=== PATIENT | male | born 1995 | race Two or more races ===

== ENCOUNTER 2024-09-15 17:08 | Inpatient (IN) | payer MEDICAID, OTHER ==
[~2024-09-15] VITALS: Ht 182.9 cm; Wt 88.4 kg
--- NOTE | 2024-09-15 18:07 | ED.PDOC ---
History of Present Illness(SKN HPI Comments 28 y.o male presents to the ED for an evaluation of a foot wound. Patient reports wearing new shoes one week ago, developed a callous on the right bottom foot which bursted and drained pus substance. Patient reports for the past 1-2 days he developed fevers, chills, nausea, vomiting and generalized weakness as well. He presents to the ED with BG of 402 and repeat at 441. Patient denies history of DM only family hx and is not on any medications. No allergies reported either. He admits to tobacco and marijuana use. Chief Complaint: Wound Check Time Seen by MD: 17:53 History of Present Illness: Nurses Notes, Medications, Allergies Allergies: Coded Allergies: NO KNOWN ALLERGIES (Unverified , 09/15/24) Information Source: Patient Mode of Arrival: Ambulatory Severity: Moderate Timing: Weeks (1) Duration: Since onset Location: Foot Object: None Condition of Object: None Wound Type: Other Tetanus: Unknown History of: None Associated Signs and Symptoms: Fever, Chills, N/V, Pus, Weakness, Weakness Past Medical History PAST MEDICAL HISTORY: Denies Surgical History: Denies all surgeries Family History Family History: Family hx of DM Social History Smoker: Cigarettes Alcohol: Occasionally Drugs: Denies Drug Use Constitutional: reports: chills, fever, weakness; denies: diaphoresis, fatigue, malaise, sweats, others EENTM: denies: blurred vision, double vision, ear bleeding, ear discharge, ear drainage, ear pain, ear ringing, eye pain, eye redness, hearing loss, mouth pain, mouth swelling, nasal discharge, nose bleeding, nose congestion, nose pain, photophobia, tearing, throat pain, throat swelling, voice changes, others Respiratory: denies: cough, hemoptysis, orthopnea, SOB at rest, shortness of breath, SOB with excertion, stridor, wheezing, others Cardiovascular: denies: chest pain, dizzy spells, diaphoresis, Dyspnea on exertion, edema, irregular heart beat, left arm pain, lightheadedness, palpitations, PND, syncope, others Gastrointestinal: reports: nausea, vomiting; denies: abdomen distended, abdominal pain, blood streaked bowels, constipated, diarrhea, dysphagia, difficulty swallowing, hematemesis, melena, poor appetite, poor fluid intake, rectal bleeding, rectal pain, others Genitourinary: denies: burning, dysuria, flank pain, frequency, hematuria, incontinence, penile discharge, penile sore, pain, testicle pain, testicle swel ling, urgency, others Neurological: denies: dizziness, fainting, headache, left sided numbness, left sided weakness, numbness, paresthesia, pre-existing deficit, right sided numbness, right sided weakness, seizure, speech problems, tingling, tremors, weakness, others Musculoskeletal: denies: back pain, gout, joint pain, joint swelling, muscle pain, muscle stiffness, neck pain, others Integumetry: reports: wounds (right foot callous with pus discharge ); denies: bruises, change in color, change in hair/nails, dryness, laceration, lesions, lumps, rash, others Allergic/Immunocompromised: denies: Difficulty Healing, Frequent Infections, Hives, Itching, others Hematologic/Lymphatic: denies: anemia, blood clots, easy bleeding, easy bruising, swollen glands, others Endocrine: denies: excessive hunger, excessive sweating, excessive thirst, excessive urination, flushing, intolerance to cold, intolerance to heat, unexplained weight gain, unexplained weight loss, others Psychiatric: denies: anxiety, bipolar disorder, depression, hopeless, panic disorder, schizophrenia, sleepless, suicidal, others All Other Systems: Reviewed and Negative Physical Exam General Appearance: Mild Distress HEENT: Normal ENT Inspection, Pharynx Normal, TMs Normal Neck: Full Range of Motion, Non-Tender, Normal, Normal Inspection Respiratory: Chest Non-Tender, Lungs Clear, No Accessory Muscle Use, No Respiratory Distress, Normal Breath Sounds Cardiovascular: No Edema, No JVD, No Murmur, No Gallop, Normal Peripheral Pulses, Regular Rate/Rhythm Breast Exam: Deferred Gastrointestinal: No Organomegaly, Non Tender, No Pulsatile Mass, Normal Bowel Sounds, Soft Genitalia: Deferred Pelvic: Deferred Rectal: Deferred Extremities: No calf tenderness, Normal capillary refill, Normal inspection, Normal range of motion, Non-tender, No pedal edema Musculoskeletal : Apperance: Normal Neurologic: Alert, foundry technician II-XII nml as Tested, No Motor Deficits, Normal Affect, Normal Mood, No Sensory Deficits Cerebellar Function: Normal Reflexes: Normal Skin: Dry, Normal Color, Warm, Other (Right foot was swelling and redness with signs of cellulitis) Lymphatic: No Adenopathy Was a procedure done? Was a procedure done?: No Differential Diagnosis (INTG) Differential Diagnosis: Contusion, Fracture Differential Diagnosis: Cellulitis Abscess: Abscess Differential Diagnosis: Puncture Wound X-Ray, Labs, Meds, VS Vital Signs Date Time Temp Pulse Resp B/P (MAP) Pulse Ox O2 Delivery O2 Flow Rate FiO2 09/15/24 18:14 124 18 96 Room Air 09/15/24 18:14 98.3 124 18 154/88 (110) 96 98.3 09/15/24 18:06 98.5 123 16 123/83 (96) 99 Lab Test 09/15/24 18:41 09/15/24 17:46 09/15/24 17:45 Range/Units White Blood Count 13.0 H 4.4-10.8 10^3/uL Red Blood Count 4.67 4.5-5.90 10^6/uL Hemoglobin 13.6 13.5-17.5 g/dL Hematocrit 39.0 L 41.0-53.0 % Mean Corpuscular Volume 83.5 80.0-100.0 fL Mean Corpuscular Hemoglobin 29.1 28.0-32.0 pg Mean Corpuscular Hemoglobin Concent 34.8 32.0-36.0 g/dL Red Cell Distribution Width 12.1 11.8-14.3 % Platelet Count 190 140-450 10^3/uL Mean Platelet Volume 9.3 6.9-10.8 fL Neutrophils (%) (Auto) 81.7 H 37.0-80.0 % Lymphocytes (%) (Auto) 10.4 10.0-50.0 % Monocytes (%) (Auto) 7.5 0.0-12.0 % Eosinophils (%) (Auto) 0.3 0.0-7.0 % Basophils (%) (Auto) 0.1 0.0-2.0 % Neutrophils # (Auto) 10.6 H 1.6-8.6 10 ^3/uL Lymphocytes # (Auto) 1.3 0.4-5.4 10 ^3/uL Monocytes # (Auto) 1.0 0-1.3 10 ^3/uL Eosinophils # (Auto) 0 0-0.8 10 ^3/uL Basophils # (Auto) 0 0-0.2 10 ^3/uL Nucleated Red Blood Cells 0.0 % Sodium Level Pending Potassium Level Pending Chloride Level Pending Carbon Dioxide Level Pending Anion Gap Pending Blood Urea Nitrogen Pending Creatinine Pending Glomerular Filtration Rate Calc Pending BUN/Creatinine Ratio Pending Serum Glucose Pending Calcium Level Pending Beta-Hydroxybutyric Acid Pending POC Glucose 441 *H 402 *H 70-106 mg/dl Current Medications Medications (Trade) Dose Ordered Sig/Nathan Route Start Time Stop Time Status Last Admin Sodium Chloride 1,000 ml @ 1,000 mls/hr Q1H ONCE IV 09/15/24 18:00 09/15/24 18:59 DC 09/15/24 18:26 Insulin Human Regular (InsuLIN R) 5 units ONCE ONCE IV 09/15/24 18:45 09/15/24 18:47 DC 09/15/24 19:05 CT scan of the left foot shows: Findings/Impression: Limited evaluation given noncontrast technique. There is no evidence of an acute fracture, dislocation, osseous erosions, blastic, or lytic lesions. No radiopaque foreign bodies. Mild soft tissue edema. No focal fluid collections or subcutaneous emphysema. The patient was given a 1 L bolus of normal saline The patient was being given insulin 5 units IV push The patient was being admitted to the hospitalist The patient was started on clindamycin IV piggyback Images Reviewed?: Images reviewed and evaluated by me Time of 1ST Reevaluation: 18:02 Reevaluation 1ST: Unchanged Patient Education/Counseling: Diagnosis, Treatment, Prognosis Family Education/Counseling: No Family Present Departure 1 Departure Time of Disposition: 19:49 Impression: Primary Impression: New onset type 2 diabetes mellitus Additional Impressions: Cellulitis of right foot Hyperglycemia Disposition: 09 ADMITTED INPATIENT Admit to: Med Surg Condition: Fair Critical Care Note Critical Care Time?: No Stability Stability form required: Yes Unstable for transfer: ED Physician Assesment (Clinical assesment) I personally scribed for WALTER NANCE MD ([email or web address]) on 09/15/24 at 18:07. Electronically submitted by Crystal Carpenter ([facility]). WALTER NANCE MD Sep 15, 2024 18:07
[2024-09-15] MEDS: SODIUM CHLORIDE 0.9% 1,000 ML IV ONE ×2 (18:26→21:45)
--- NOTE | 2024-09-15 18:36 | DVH ---
EXAM: CT CT R FOOT WO CONTRAST INDICATION: WOUND EXAM DATE: 09/15/2024 06:00 PM COMPARISON: None TECHNIQUE: Multiple axial CT images of the right foot were obtained using bone algorithm. Axial and c oronal reformatting was done. Bone and soft tissue windows were reviewed. Radiation Dose Information: CT Dose: CTDI volume is 7.75 mGy. Dose-length product is 204.08 mGy*cm Findings/Impression: Limited evaluation given noncontrast technique. There is no evidence of an acute fracture, dislocation, osseous erosions, blastic, or lytic lesions. No radiopaque foreign bodies. Mild soft tissue edema. No focal fluid collections or subcutaneous emphysema.
[2024-09-15] MEDS: InsuLIN REG 1unit/0.01ml Soln (100units/ml) IV ONE ×2 (19:05→22:17)
[2024-09-15 19:18] LABS: Basophils # (auto) 0 10 ^3/uL (0-0.2); Basophils % (auto) 0.1 % (0.0-2.0); Eosinophils # (auto) 0 10 ^3/uL (0-0.8); Eosinophils % (auto) 0.3 % (0.0-7.0); Hemoglobin 13.6 g/dL (13.5-17.5); Lymphocytes # (auto) 1.3 10 ^3/uL (0.4-5.4); Lymphocytes % (auto) 10.4 % (10.0-50.0); Mean Corpuscular Hemoglobin 29.1 pg (28.0-32.0); Mean Corpuscular Hgb Conc. 34.8 g/dL (32.0-36.0); Mean Corpuscular Volume 83.5 fL (80.0-100.0); Monocytes % (auto) 7.5 % (0.0-12.0); Neutrophils # (auto) 10.6 10 ^3/uL (1.6-8.6); Neutrophils % (auto) 81.7 % (37.0-80.0); Platelet Count (auto) 190 10^3/uL (140-450); Red Blood Cells 4.67 10^6/uL (4.5-5.90); Red Cell Distribution Width 12.1 % (11.8-14.3)
[2024-09-15 19:27] LABS: Potassium 4.4 mmol/L (3.5-5.1)
[2024-09-15 19:28] LABS: Anion Gap 9 (5-15); Calcium 9.1 mg/dL (8.7-10.4); Carbon Dioxide 25 mmol/L (20-31)
[2024-09-15 19:33] LABS: BUN/Creatinine Ratio 13.7 (10.0-20.0); Blood Urea Nitrogen 14 mg/dL (9-23)
[2024-09-15 19:47] LABS: Chloride 97 mmol/L (98-107); Sodium 131 mmol/L (136-145)
[2024-09-15 19:48] LABS: Glucose 431 mg/dL (74-106)
[2024-09-15 20:15] VITALS: PULSE 115; RESP 20; O2SAT 97
--- NOTE | 2024-09-15 21:28 | DVHHPRES ---
History of Present Illness Resident Creating Document: ANN DALEY RESDIENT History of Present Illness This is a 28-year-old male with fecal past medical history came to the hospital due to foot wound. Per patient, he changes shows 1 week back which was not properly feet (use for 1 day), 3 days later his noticed a blister at the heel of right foot, which progressively enlarged, and burst. The patient did not noticed the ulcer at the beginning, did not feel any pain. Today, right leg is pollen/rate at the level of ankle with mild tenderness. At ER, glucose was 441. PMHx: Not significant PSHx: not Significant Family history: Significant for the diabetes in mother and father Social history: Smokes cigarettes, denies any other drug use Home medication: Use no medicine Allergic history: No known allergies Review of Systems Review of Systems General: patient denies fever, fatigue, weaknes, sweating, any recent changes in appetite and weight HEENT: No headaches, visiual changes, hearing loss, tinnitus, nasal congestion and discharge, and sore throat. Cardiovascular: Denies chest pain, palpitations, dyspnea on exertion, orthopnea, or claudication. Respiratory: No cough, and wheezing. Gastrointestinal: Denies nausea, vomiting, dysphagia, odynophagia, heartburn, abdominal pain, flatulence, bloating, diarrhea, constipation, change in stool, or blood in stool. Genitourinary: No dysuria, hematuria, discharge, frequency, urgency, nocturia, incontinence, and urinary retention. Endocrine: No heat or cold intolerance, polydipsia, polyuria, and polyphagia. Neurological: No dizziness, extremity weakness and numbness, tremors, gait disturbance, seizures, and memory impairment. Psychiatric: Denies depression, anxiety,or insomnia. Musculoskeletal: Reports right leg swelling and redness at the level of ankle, with mild pain and burning sensation Skin: No rashes, itching, skin lesion, changes in hair, nail, skin texture and breast. Hematologic/Lymphatic: Denies easy bruising, bleeding tendencies, or lymph node enlargement. Allergies: Coded Allergies: NO KNOWN ALLERGIES (Unverified , 09/15/24) Exam Vital Signs Vital Signs Date Time Temp Pulse Resp B/P (MAP) Pulse Ox O2 Delivery O2 Flow Rate FiO2 09/15/24 20:15 115 20 97 Room Air* 0 21 09/15/24 20:14 99.9 122/79 (93) 99.9 Exam General Appearance: Alert, Oriented X3, Cooperative, No acute distress HEENT: Atraumatic, PERRLA, EOMI, Mucous membrane moist/pink Respiratory: Clear to auscultation, Normal air movement Cardiovascular: Regular rate, Normal S1, Normal S2, No murmurs, no chest wall tenderness Abdominal: Normal bowel sounds, Soft, No tenderness, No hepatospenomegaly, No masses Extremities: Right leg at the level of ankle is swollen, red, mildly tender to palpation, with a callus at the back of heel Skin: No rashes, No breakdown, No significant lesion Neuro: Normal gait, Normal speech, Strength at 5/5 X4 ext, Normal tone, Sensa tion intact, Cranial nerves 3-12 NL, Reflexes 2+ Psych/Mental Status: Mental status NL, Mood NL Labs/Xrays Labs Test 09/15/24 18:41 09/15/24 17:46 Range/Units White Blood Count 13.0 H 4.4-10.8 10^3/uL Red Blood Count 4.67 4.5-5.90 10^6/uL Hemoglobin 13.6 13.5-17.5 g/dL Hematocrit 39.0 L 41.0-53.0 % Mean Corpuscular Volume 83.5 80.0-100.0 fL Mean Corpuscular Hemoglobin 29.1 28.0-32.0 pg Mean Corpuscular Hemoglobin Concent 34.8 32.0-36.0 g/dL Red Cell Distribution Width 12.1 11.8-14.3 % Platelet Count 190 140-450 10^3/uL Mean Platelet Volume 9.3 6.9-10.8 fL Neutrophils (%) (Auto) 81.7 H 37.0-80.0 % Lymphocytes (%) (Auto) 10.4 10.0-50.0 % Monocytes (%) (Auto) 7.5 0.0-12.0 % Eosinophils (%) (Auto) 0.3 0.0-7.0 % Basophils (%) (Auto) 0.1 0.0-2.0 % Neutrophils # (Auto) 10.6 H 1.6-8.6 10 ^3/uL Lymphocytes # (Auto) 1.3 0.4-5.4 10 ^3/uL Monocytes # (Auto) 1.0 0-1.3 10 ^3/uL Eosinophils # (Auto) 0 0-0.8 10 ^3/uL Basophils # (Auto) 0 0-0.2 10 ^3/uL Nucleated Red Blood Cells 0.0 % Sodium Level 131 L 136-145 mmol/L Potassium Level 4.4 3.5-5.1 mmol/L Chloride Level 97 L 98-107 mmol/L Carbon Dioxide Level 25 20-31 mmol/L Anion Gap 9 5-15 Blood Urea Nitrogen 14 9-23 mg/dL Creatinine 1.02 0.700-1.30 mg/dL Glomerular Filtration Rate Calc 101 >90 mL/min BUN/Creatinine Ratio 13.7 10.0-20.0 Serum Glucose 431 *H 74-106 mg/dL Calcium Level 9.1 8.7-10.4 mg/dL Beta-Hydroxybutyric Acid 0.412 H < 0.4 mmol/L POC Glucose 441 *H 70-106 mg/dl Assessment/Plan Assessment/Plan Sepsis, likely due to diabetic foot Diabetic foot Cellulitis CT scan shows, mild soft tissue edema with no fluid collection Wound culture, blood culture, MRSA nares Empiric antibiotic of vancomycin and cefepime IV fluid [place] p.r.[facility]. Diabetes mellitus with hyperglycemia Hb A1c is 11.8 Insulin 5 units Insulin moderate SS Pseudo hyponatremia, likely due to hyperglycemia DIET: Diabetic diet CODE STATUS: Goal Of care discussed for more than 21 minutes, full DISPOSITION: Med/surge Patient's status and paln discussed with the patient. Case discussed with Dr. Meza. Plan discussed with: Other Date of Service: Sep 15, 2024 Billing Provider: LI VÁSQUEZ MD Common Visit Codes: [id number] INP/OBS CARE (HIGH) ANN DALEY RESDIENT Sep 15, 2024 21:28 LI VÁSQUEZ MD Sep 20, 2024 16:06
[2024-09-15] MEDS ORDERED: DEXTROSE (50%) 50ML SYRG IV PRN (21:45)
[2024-09-15] MEDS ORDERED: VANCOMYCIN PER PHARMACY 0 MG IV SCH (21:45)
[2024-09-15] MEDS ORDERED: HYDROcodone-ACET 5/325MG TAB PO PRN (21:45)
[2024-09-15] MEDS: SODIUM CHLORIDE 0.9% 500 ML IV ONE (21:45)
[2024-09-15] MEDS: ACETAMINOPHEN 325 MG TAB PO ONE (22:20)
[2024-09-15 22:58] LABS: Bilirubin, Direct 0.3 mg/dL (<0.3)
[2024-09-15 22:59] LABS: Bilirubin, Total 0.8 mg/dL (0.2-1.0)
[2024-09-15 23:21] LABS: Albumin 4.9 g/dL (3.2-4.8); Total Protein 8.3 g/dL (5.7-8.2)
[2024-09-15 23:39] VITALS: BP 122/71; PULSE 109; RESP 18; TEMP 100.5; O2SAT 96
[2024-09-15] MEDS: CEFEPIME 1GM/ 50ML 50 ML IV SCH (23:42)
[2024-09-15] MEDS: ACETAMINOPHEN 325 MG TAB PO PRN (23:46)
[2024-09-16] MEDS: InsuLIN REG 1unit/0.01ml Soln (100units/ml) SC SCH
[2024-09-16] MEDS: ACCU-CHEK COMFORT CURVE STRIP VI SCH
[2024-09-16 01:22] LABS: Erythrocyte Sedimentation Rate 62 mm/hr (0-20)
[2024-09-16] MEDS: VANCOMYCIN 1GM/250mL NS or D5W KIT IV SCH (01:50)
[2024-09-16 03:19] LABS: Basophils # (auto) 0 10 ^3/uL (0-0.2); Basophils % (auto) 0.1 % (0.0-2.0); Eosinophils # (auto) 0 10 ^3/uL (0-0.8); Eosinophils % (auto) 0.3 % (0.0-7.0); Hematocrit 35.2 % (41.0-53.0); Hemoglobin 12.5 g/dL (13.5-17.5); Lymphocytes # (auto) 1.8 10 ^3/uL (0.4-5.4); Lymphocytes % (auto) 13.2 % (10.0-50.0); Mean Corpuscular Hemoglobin 29.7 pg (28.0-32.0); Mean Corpuscular Hgb Conc. 35.6 g/dL (32.0-36.0); Mean Corpuscular Volume 83.5 fL (80.0-100.0); Monocytes % (auto) 7.3 % (0.0-12.0); Neutrophils # (auto) 10.5 10 ^3/uL (1.6-8.6); Neutrophils % (auto) 79.1 % (37.0-80.0); Platelet Count (auto) 170 10^3/uL (140-450); Red Blood Cells 4.22 10^6/uL (4.5-5.90); Red Cell Distribution Width 11.7 % (11.8-14.3); White Blood Cell 13.3 10^3/uL (4.4-10.8)
[2024-09-16 03:36] LABS: Alanine Aminotransferase 28 U/L (7-40); Albumin 4.1 g/dL (3.2-4.8); Alkaline Phosphatase 111 U/L (46-116); Anion Gap 9 (5-15); BUN/Creatinine Ratio 12.6 (10.0-20.0); Blood Urea Nitrogen 12 mg/dL (9-23); Calcium 9.7 mg/dL (8.7-10.4); Carbon Dioxide 25 mmol/L (20-31); Chloride 99 mmol/L (98-107); Potassium 4.2 mmol/L (3.5-5.1)
[2024-09-16 03:37] LABS: Bilirubin, Total 0.8 mg/dL (0.2-1.0); Total Protein 7.3 g/dL (5.7-8.2)
[2024-09-16 03:44] LABS: Aspartate Aminotransferase < 8 U/L (13-40); Glucose 300 mg/dL (74-106); Sodium 133 mmol/L (136-145)
[2024-09-16] MEDS: metroNIDAZOLE 500MG/100ML 100 ML IV ONE (07:05)
[2024-09-16 09:00] VITALS: BP 129/76; PULSE 98; RESP 14; TEMP 97.6; O2SAT 96
[2024-09-16] MEDS: INSULIN LANTUS (GLARGINE) 1 /0.01ml (100units/ml) SC SCH (11:14)
[2024-09-16 11:59] LABS: Urine Bacteria None Seen /hpf (None Seen)
[2024-09-16 12:11] LABS: Urine Blood Negative /uL (Negative); Urine Clarity Clear (Clear); Urine Color Yellow (Yellow); Urine Protein, UAD TRACE (Negative); Urine Specific Gravity 1.037 (1.001-1.035); Urine Squamous Epithelial Cell None Seen /hpf (<5); Urine Urobilinogen Normal (Negative); Urine WBC 1 /HPF (0-3); Urine pH 5.5 (5.0-9.0)
[2024-09-16 12:25] LABS: Amphetamine Screen, Urine Neg (NEGATIVE); Barbiturate Scree,Urine Neg (NEGATIVE); Benzodiazephine Screen, Urine Neg (NEGATIVE); Cannabinoid Screen, Urine Neg (NEGATIVE); Cocaine Screen, Urine Pos (NEGATIVE); Opiate Scree,Urine Neg (NEGATIVE); Phencyclidine Screen, Urine Neg (NEGATIVE)
--- NOTE | 2024-09-16 13:46 | DVHPNRES ---
Progress Note Date Seen: Sep 16, 2024 Resident Creating Document: JHAJLUIS DANIEL WenSCOTT RESIDENT Medical Necessity Reason Pt with a Central, PICC or Fol: No Subjective Review of Systems Patient is a 28-year-old male with no significant past medical history came to the ED with a chief complaint of right foot swelling and ulcer. Patient reports that about a week ago he got new footwear and he started wearing get and about 4 days ago he noticed a small blister at the back of his heel which eventually enlarged and burst followed by gradual swelling around the right ankle with the associated erythema and tenderness. Patient reported associated chills, fever but denied any shortness of breath. Patient in the ER was noted to have a blood glucose level of more than 400 mg/dL. Past medical history: None Past surgical history: None Family history: Patient's mother and father are both diabetic Social history: Patient smokes cigarettes but denies drinking alcohol or any other drug use Home medications: None Review of systems Patient reported [id number] pain from the right ankle Reports feeling better than when he came in Denied palpitations, chest pain, shortness of breath Objective vital signs Vital Sign Date Time Temp Pulse Resp B/P (MAP) Pulse Ox O2 Delivery O2 Flow Rate FiO2 09/16/24 09:00 97.6 98 14 129/76 (93) 96 97.6 09/15/24 20:15 Room Air* 0 21 Total Intake and Output 09/15/24 09/15/24 09/16/24 15:00 23:00 07:00 Intake Total 420 ml Output Total 650 ml Balance -230 ml medications Current Medications Medications Dose Ordered Sig/Nathan Route Start Time Stop Time Status Last Admin Dose Admin Vancomycin HCl 0 ml @ 0 mls/hr UD IV 09/15/24 21:45 Cefepime HCl 50 ml @ 12.5 mls/hr Q8HR IV 09/15/24 22:00 09/16/24 06:12 12.5 MLS/HR Acetaminophen/ Hydrocodone Bitart 1 tab Q4HPRN PRN PO 09/15/24 21:45 Acetaminophen 650 mg Q6HP PRN PO 09/15/24 21:45 09/15/24 23:46 650 MG Diagnostic Test (Pha) 1 strip IQ4HR 09/16/24 00:00 09/16/24 12:00 1 STRIP Insulin Human Regular IQ4HR SC 09/16/24 00:00 09/16/24 12:00 3 UNITS Dextrose 50 ml UD PRN IV 09/15/24 21:45 Insulin Glargine 16 units DAILY@1000 SC 09/16/24 10:00 09/16/24 11:14 16 UNITS Metronidazole 100 ml @ 100 mls/hr Q8HR IV 09/16/24 14:00 Vancomycin HCl 250 ml @ 200 mls/hr Q8H IV 09/16/24 13:00 Examination Physical Examination Constitutional: Patient was alert and oriented to time, place and person and does not appear to be in any acute distress Gen - no pallor, no icterus, no cyanosis, no clubbing, no LAD Skin - Patients skin is warm and dry. HEENT - normocephalic, atraumatic, moist mucous membranes. Neck - full ROM, no LAD Pulmonary - B/L vesicular breath sounds. no crackles , no wheezing cardiovascular - normal S1,S2 heard. no murmurs heard. peripheral pulses normal radial 2+, pedal 2+. capillary refill normal <2 secs. GI - soft abdomen without tenderness to palpation. no hepatospleenomegaly. Bowel sounds normoactive Neurological - Bilateral upper extremity strength 5/5, bilateral lower extremity strength 5/5, no facial droop, normal speech, no tremor, no sensory deficiets. Extremities: Right ankle is swollen and red. Ulcer with the back of the heel with no overt drainage. Area of erythema marked laboratory and microbiology Laboratory Tests 09/16/24 02:40 Test 09/16/24 02:40 Range/Units Serum Glucose 300 #H 74-106 mg/dL Problem List/Assessment/Plan Problem List/Assessment/Plan Sepsis likely due to foot ulcer Cellulitis Diabetic foot ulcer R/O osteomyelitis - elevated ESR 62 and CRP 8.66 - foot CT shows mild soft tissue edema, no focal fluid collection or subcutaneous emphysema, no evidence of acute fracture, dislocation, osseous erosion, blastic or lytic lesion - MRI foot pending to rule out osteomyelitis - preliminary blood cultures growing Gram-positive cocci in clusters - patient was on vancomycin IV, cefepime IV, metronidazole IV - IV fluids Uncontrolled type 2 diabetes mellitus - HbA1c 11.8% - patient is started on insulin Lantus 16 units - moderate insulin sliding scale - on consistent carbohydrate diet Goals of care discussed with the patient for over 25 minutes. Full code Plan discussed with Dr. Armstrong Plan discussed with: Patient My Orders My Orders Orders - ERENDIRA SMITH Procedure Category Date Status Time Insulin Lantus PHA 09/16/24 In Process (Glargine) (Lantus) 10:00 Metronidazole PHA 09/16/24 In Process 500mg/100ml (Flagyl 14:00 Date of Service: Sep 16, 2024 Billing Provider: PANCHO ARMSTRONG MD Common Visit Codes: [id number] INP/OBS CARE(HIGH) ERENDIRA SMITH Sep 16, 2024 13:46 PANCHO ARMSTRONG MD Sep 18, 2024 18:19
[2024-09-16] MEDS: VANCOMYCIN 1.25GM/250ML 250 ML IV SCH (14:01)
[2024-09-16] MEDS: SODIUM CHLORIDE 0.9% 500 ML IV ONE (16:20)
[2024-09-16 17:00] VITALS: BP 151/82; PULSE 99; RESP 18; TEMP 98.5; O2SAT 96
[2024-09-16] MEDS: metroNIDAZOLE 500MG/100ML 100 ML IV SCH (17:31)
[2024-09-16 20:27] VITALS: BP 137/77; PULSE 116; RESP 20; TEMP 98.2; O2SAT 100
[2024-09-17 01:00] VITALS: BP 117/73; PULSE 108; RESP 18; TEMP 100.3; O2SAT 97
[2024-09-17 04:39] LABS: Chloride 101 mmol/L (98-107); Potassium 3.6 mmol/L (3.5-5.1)
[2024-09-17 04:40] LABS: Anion Gap 9 (5-15); Calcium 9.1 mg/dL (8.7-10.4); Carbon Dioxide 23 mmol/L (20-31)
[2024-09-17 04:45] LABS: BUN/Creatinine Ratio 11.8 (10.0-20.0); Blood Urea Nitrogen 10 mg/dL (9-23)
[2024-09-17 04:51] LABS: Basophils # (auto) 0 10 ^3/uL (0-0.2); Basophils % (auto) 0.3 % (0.0-2.0); Eosinophils # (auto) 0.1 10 ^3/uL (0-0.8); Eosinophils % (auto) 0.4 % (0.0-7.0); Hematocrit 35.4 % (41.0-53.0); Hemoglobin 12.2 g/dL (13.5-17.5); Lymphocytes # (auto) 1.6 10 ^3/uL (0.4-5.4); Lymphocytes % (auto) 13.9 % (10.0-50.0); Mean Corpuscular Hemoglobin 28.8 pg (28.0-32.0); Mean Corpuscular Hgb Conc. 34.5 g/dL (32.0-36.0); Mean Corpuscular Volume 83.6 fL (80.0-100.0); Monocytes # (auto) 0.9 10 ^3/uL (0-1.3); Monocytes % (auto) 7.9 % (0.0-12.0); Neutrophils # (auto) 9.1 10 ^3/uL (1.6-8.6); Neutrophils % (auto) 77.5 % (37.0-80.0); Nucleated Red Blood Cells % 0.1 %; Platelet Count (auto) 192 10^3/uL (140-450); Red Blood Cells 4.23 10^6/uL (4.5-5.90); Red Cell Distribution Width 11.8 % (11.8-14.3); White Blood Cell 11.7 10^3/uL (4.4-10.8)
[2024-09-17 04:53] LABS: Glucose 181 mg/dL (74-106); Sodium 133 mmol/L (136-145)
[2024-09-17 05:00] VITALS: BP 144/89; PULSE 104; RESP 19; TEMP 100.9; O2SAT 96
[2024-09-17 08:43] VITALS: BP 142/94; PULSE 105; RESP 18; TEMP 98.5; O2SAT 96
--- NOTE | 2024-09-17 12:06 | DVHPNRES ---
Progress Note Date Seen: Sep 17, 2024 Resident Creating Document: GLEN DODGE RESIDENT Medical Necessity Reason Pt with a Central, PICC or Fol: No Subjective Review of Systems Patient is a 28-year-old male with no significant past medical history came to the ED with a chief complaint of right foot swelling and ulcer. Patient reports that about a week ago he got new footwear and he started wearing get and about 4 days ago he noticed a small blister at the back of his heel which eventually enlarged and burst followed by gradual swelling around the right ankle with the associated erythema and tenderness. Patient reported associated chills, fever but denied any shortness of breath. Patient in the ER was noted to have a blood glucose level of more than 400 mg/dL. Past medical history: None Past surgical history: None Family history: Patient's mother and father are both diabetic Social history: Patient smokes cigarettes but denies drinking alcohol or any other drug use Home medications: None Review of systems Patient reported [id number] pain from the right ankle Reports feeling better than when he came in Denied palpitations, chest pain, shortness of breath Objective vital signs Vital Sign Date Time Temp Pulse Resp B/P (MAP) Pulse Ox O2 Delivery O2 Flow Rate FiO2 09/17/24 08:43 98.5 105 18 142/94 (110) 96 98.5 09/16/24 22:00 Room Air* 0 21 Total Intake and Output 09/16/24 09/16/24 09/17/24 15:00 23:00 07:00 Intake Total 1563 ml 1410 ml Balance 1563 ml 1410 ml medications Current Medications Medications Dose Ordered Sig/Nathan Route Start Time Stop Time Status Last Admin Dose Admin Vancomycin HCl 0 ml @ 0 mls/hr UD IV 09/15/24 21:45 Cefepime HCl 50 ml @ 12.5 mls/hr Q8HR IV 09/15/24 22:00 09/17/24 04:59 12.5 MLS/HR Acetaminophen/ Hydrocodone Bitart 1 tab Q4HPRN PRN PO 09/15/24 21:45 Acetaminophen 650 mg Q6HP PRN PO 09/15/24 21:45 09/15/24 23:46 650 MG Diagnostic Test (Pha) 1 strip IQ4HR 09/16/24 00:00 09/17/24 08:10 1 STRIP Insulin Human Regular IQ4HR SC 09/16/24 00:00 09/17/24 08:21 3 UNITS Dextrose 50 ml UD PRN IV 09/15/24 21:45 Insulin Glargine 16 units DAILY@1000 SC 09/16/24 10:00 09/17/24 10:46 16 UNITS Metronidazole 100 ml @ 100 mls/hr Q8HR IV 09/16/24 14:00 09/17/24 04:59 100 MLS/HR Vancomycin HCl 250 ml @ 200 mls/hr Q8H IV 09/16/24 13:00 09/17/24 04:58 200 MLS/HR Examination Constitutional: Patient was alert and oriented to time, place and person and does not appear to be in any acute distress Gen - no pallor, no icterus, no cyanosis, no clubbing, no LAD Skin - Patients skin is warm and dry. HEENT - normocephalic, atraumatic, moist mucous membranes. Neck - full ROM, no LAD Pulmonary - B/L vesicular breath sounds. no crackles , no wheezing cardiovascular - normal S1,S2 heard. no murmurs heard. peripheral pulses normal radial 2+, pedal 2+. capillary refill normal <2 secs. GI - soft abdomen without tenderness to palpation. no hepatospleenomegaly. Bowel sounds normoactive Neurological - Bilateral upper extremity strength 5/5, bilateral lower extremity strength 5/5, no facial droop, normal speech, no tremor, no sensory deficiets. Extremities: Right ankle is swollen and red. Ulcer with the back of the heel with no overt drainage. Area of erythema marked laboratory and microbiology Laboratory Tests 09/17/24 04:03 Test 09/17/24 04:03 Range/Units Serum Glucose 181 #H 74-106 mg/dL Microbiology Date/Time Source Procedure Growth Status 09/15/24 22:22 Blood Blood Culture - Preliminary Resulted Problem List/Assessment/Plan Problem List/Assessment/Plan Sepsis likely due to foot ulcer Cellulitis Diabetic foot ulcer R/O osteomyelitis - elevated ESR 62 and CRP 8.66 - foot CT shows mild soft tissue edema, no focal fluid collection or subcutaneous emphysema, no evidence of acute fracture, dislocation, osseous erosion, blastic or lytic lesion - MRI foot pending lecture to rule out osteomyelitis - blood cultures growing gram + in clusters - patient was on vancomycin IV, cefepime IV, metronidazole IV - IV fluids -Podiatry consult Uncontrolled type 2 diabetes mellitus - HbA1c 11.8% - patient is started on insulin Lantus 20 units - moderate insulin sliding scale - on consistent carbohydrate diet Goals of care discussed with the patient for over 25 minutes. Full code Plan discussed with Dr. Armstrong Plan discussed with: Patient, Other (rn) Date of Service: Sep 17, 2024 Billing Provider: PANCHO ARMSTRONG MD Common Visit Codes: [id number] INP/OBS CARE(HIGH) GLEN DODGE RESIDENT Sep 17, 2024 12:06 PANCHO ARMSTRONG MD Sep 18, 2024 18:20
--- NOTE | 2024-09-17 12:33 | DVH ---
CLINICAL HISTORY: 28 years old, Male; infection, rule out osteomyelitis. TECHNIQUE: Multi sequence multi planar MRI images of the right foot were obtained without IV contras t. COMPARISON: CT CT R FOOT WO CONTRAST on DOS: 09/15/24 FINDINGS: Moderate subcutaneous edema around the ankle and dorsal aspect of the foot, which is nonsp ecific, but may be seen with cellulitis in the appropriate clinical setting. There is a focal complex fluid collection along the lateral aspect of the hindfoot near the posterior calcaneus adjacent to t he lateral aspect of the distal Achilles tendon, measuring up to 1.3 cm in AP dimension, 1.3 cm in tr ansverse dimension, and 2.9 cm in craniocaudal dimension, adjacent to the posterior skin surface, pos sible abscess, although limited evaluation for abscess on noncontrast enhanced MRI. No marrow signal abnormality in the right foot to suggest osteomyelitis. IMPRESSION: 1. Subcutaneous edema around the ankle and dorsal aspect of the foot is nonspecific, but may be seen with cellulitis in the appropriate clinical setting. 2. Focal fluid collection along the lateral aspect of the hindfoot, adjacent to the posterior calcane us achilles tendon insertion and abutting the posterior skin surface, possible abscess, although not well characterized on noncontrast enhanced exam. 3. No evidence for osteomyelitis.
[2024-09-17 13:00] VITALS: BP 142/83; PULSE 104; RESP 18; TEMP 98.6; O2SAT 98
[2024-09-17 16:19] VITALS: BP 142/86; PULSE 105; RESP 20; TEMP 100.2; O2SAT 95
[2024-09-17 21:00] VITALS: BP 133/97; PULSE 107; RESP 20; TEMP 100.3; O2SAT 96
[2024-09-18] VITALS (7 sets, daily range): BP systolic 121–160; BP diastolic 75–95; PULSE 94–110; RESP 13–20; TEMP 98–100.2; O2SAT 92–96
[2024-09-18 05:43] LABS: Basophils # (auto) 0 10 ^3/uL (0-0.2); Basophils % (auto) 0.3 % (0.0-2.0); Eosinophils # (auto) 0.1 10 ^3/uL (0-0.8); Eosinophils % (auto) 0.8 % (0.0-7.0); Hematocrit 34.4 % (41.0-53.0); Hemoglobin 11.8 g/dL (13.5-17.5); Lymphocytes # (auto) 1.2 10 ^3/uL (0.4-5.4); Lymphocytes % (auto) 16.5 % (10.0-50.0); Mean Corpuscular Hemoglobin 28.6 pg (28.0-32.0); Mean Corpuscular Hgb Conc. 34.4 g/dL (32.0-36.0); Mean Corpuscular Volume 83.3 fL (80.0-100.0); Monocytes # (auto) 0.9 10 ^3/uL (0-1.3); Monocytes % (auto) 12.2 % (0.0-12.0); Neutrophils % (auto) 70.2 % (37.0-80.0); Platelet Count (auto) 203 10^3/uL (140-450); Red Blood Cells 4.13 10^6/uL (4.5-5.90); White Blood Cell 7.1 10^3/uL (4.4-10.8)
[2024-09-18 05:56] LABS: Alanine Aminotransferase 21 U/L (7-40); Alkaline Phosphatase 105 U/L (46-116); Anion Gap 9 (5-15); Aspartate Aminotransferase 14 U/L (13-40); BUN/Creatinine Ratio 10.5 (10.0-20.0); Blood Urea Nitrogen 9 mg/dL (9-23); Calcium 8.9 mg/dL (8.7-10.4); Carbon Dioxide 23 mmol/L (20-31); Chloride 102 mmol/L (98-107); Potassium 3.5 mmol/L (3.5-5.1)
[2024-09-18 05:57] LABS: Albumin 3.9 g/dL (3.2-4.8); Bilirubin, Total 0.4 mg/dL (0.2-1.0); Total Protein 6.8 g/dL (5.7-8.2)
[2024-09-18 06:21] LABS: Glucose 173 mg/dL (74-106); Sodium 134 mmol/L (136-145)
[2024-09-18] MEDS: INSULIN LANTUS (GLARGINE) 1 /0.01ml (100units/ml) SC SCH (08:39)
[2024-09-18] MEDS ORDERED: KETAMINE 50mg/ML 10ml Vial (500mg/10ml) IV ONE (10:47)
--- NOTE | 2024-09-18 11:47 | DVHINCON2 ---
Date Seen: Sep 18, 2024 Reason for Consultation Left heel wound History of Present Illness History of Present Illness This is a 28-year-old male with fecal past medical history came to the hospital due to foot wound. Per patient, he changes shows 1 week back which was not properly feet (use for 1 day), 3 days later his noticed a blister at the heel of right foot, which progressively enlarged, and burst. The patient did not noticed the ulcer at the beginning, did not feel any pain. Today, right leg is pollen/rate at the level of ankle with mild tenderness. At ER, glucose was 441. Past Medical History See H&P Past Surgical History See H&P Family History: Colon cancer Diabetes mellitus G8 MOTHER G8 FATHER Allergies: Coded Allergies: NO KNOWN ALLERGIES (Unverified , 09/15/24) Home Meds No Active Prescriptions or Reported Meds Current Medications Current Medications Medications (Trade) Dose Ordered Sig/Nathan Route PRN Reason Start Time Stop Time Status Last Admin Insulin Glargine (Lantus) 20 units DAILY@1000 SC 09/18/24 10:00 09/18/24 08:39 Vital Signs Vital Signs Date Time Temp Pulse Resp B/P (MAP) Pulse Ox O2 Delivery O2 Flow Rate FiO2 09/18/24 09:01 99.3 105 19 134/94 (107) 94 99.3 09/18/24 08:00 Room Air* 0 21 Physical Exam DERMATOLOGIC EXAM: - Skin is dry and cool to the touch dry bilaterally. - Nails 1-5 of the bilateral foot are thickened, discolored, dystrophic, and tender to palpate with subungual debris - Hair loss noted to bilateral feet Wound #1: Location: Left lateral heel Measurements: Length 1 cm cm x width 1 cm cm x depth 1 cm cm. Wound margins: Hyperkeratotic. Wound base: Full thickness. General Appearance: Fluctuant Probes to Bone: No Purulent drainage: The S Serous drainage: No Erythema: Heel VASCULAR EXAM: - DP and PT pulses are palpable bilaterally. - CONTRACTING SPECIALIST is brisk to all digits. - Feet are cool to touch compared to lower legs bilaterally. NEUROLOGIC EXAM: - Normal light touch sensation to the superficial peroneal, deep peroneal, sural, saphenous, and tibial nerve branches. - Protective sensation is diminished as tested with a 5.07 10g [place] bilaterally. MUSCULOSKELETAL EXAM: - No gross deformities - Muscle strength is 5/5 and active motion is pain-free and symmetrical bilaterally - No pain or crepitation with passive range of motion bilaterally to all major pedal joints Labs/Diagnostic Data Labs Test 09/18/24 08:29 09/18/24 04:52 09/17/24 04:03 09/16/24 11:50 Range/Units POC Glucose 161 H 70-106 mg/dl White Blood Count 7.1 # 4.4-10.8 10^3/uL Red Blood Count 4.13 L 4.5-5.90 10^6/uL Hemoglobin 11.8 L 13.5-17.5 g/dL Hematocrit 34.4 L 41.0-53.0 % Mean Corpuscular Volume 83.3 80.0-100.0 fL Mean Corpuscular Hemoglobin 28.6 28.0-32.0 pg Mean Corpuscular Hemoglobin Concent 34.4 32.0-36.0 g/dL Red Cell Distribution Width 12.0 11.8-14.3 % Platelet Count 203 140-450 10^3/uL Mean Platelet Volume 9.0 6.9-10.8 fL Neutrophils (%) (Auto) 70.2 37.0-80.0 % Lymphocytes (%) (Auto) 16.5 10.0-50.0 % Monocytes (%) (Auto) 12.2 H 0.0-12.0 % Eosinophils (%) (Auto) 0.8 0.0-7.0 % Basophils (%) (Auto) 0.3 0.0-2.0 % Neutrophils # (Auto) 5.0 1.6-8.6 10 ^3/uL Lymphocytes # (Auto) 1.2 0.4-5.4 10 ^3/uL Monocytes # (Auto) 0.9 0-1.3 10 ^3/uL Eosinophils # (Auto) 0.1 0-0.8 10 ^3/uL Basophils # (Auto) 0 0-0.2 10 ^3/uL Nucleated Red Blood Cells 0.0 % Sodium Level 134 L 136-145 mmol/L Potassium Level 3.5 3.5-5.1 mmol/L Chloride Level 102 98-107 mmol/L Carbon Dioxide Level 23 20-31 mmol/L Anion Gap 9 5-15 Blood Urea Nitrogen 9 9-23 mg/dL Creatinine 0.86 0.700-1.30 mg/dL Glomerular Filtration Rate Calc 119 >90 mL/min BUN/Creatinine Ratio 10.5 10.0-20.0 Serum Glucose 173 H 74-106 mg/dL Calcium Level 8.9 8.7-10.4 mg/dL Total Bilirubin 0.4 0.2-1.0 mg/dL Aspartate Amino Transferase (AST) 14 13-40 U/L Alanine Aminotransferase (ALT) 21 7-40 U/L Alkaline Phosphatase 105 46-116 U/L Total Protein 6.8 5.7-8.2 g/dL Albumin 3.9 3.2-4.8 g/dL Vancomycin Level Trough 16.4 H 5-10 ug/mL Urine Color Yellow Yellow Urine Clarity Clear Clear Urine pH 5.5 5.0-9.0 Urine Specific [place] 1.037 H 1.001-1.035 Urine Protein Trace H Negative Urine Ketones 2+ H Negative Urine Blood Negative Negative /uL Urine Nitrite Negative Negative Urine Bilirubin Negative Negative Urine Urobilinogen Normal Negative mg/dL Urine Leukocyte Esterase Negative Negative /uL Urine RBC <1 0 - 3 /hpf Urine Microscopic WBC 1 0-3 /HPF Urine Squamous Epithelial Cells None seen <5 /hpf Urine Bacteria None seen None Seen /hpf Urine Glucose 4+ H Normal mg/dL Urine Opiates Screen Neg NEGATIVE Urine Fentanyl Screen Neg NEGATIVE Urine Barbiturates Screen Neg NEGATIVE Urine Phencyclidine Screen Neg NEGATIVE Urine Amphetamines Screen Neg NEGATIVE Urine Benzodiazepines Screen Neg NEGATIVE Urine Cocaine Screen Pos NEGATIVE Urine Cannabinoids Screen Neg NEGATIVE Test 09/15/24 22:12 09/15/24 18:41 Range/Units Erythrocyte Sedimentation Rate 62 H 0-20 mm/hr Hemoglobin A1c 11.8 H <5.7 % A1C Lactic Acid Level 1.3 0.4-2.0 mmol/L Magnesium Level 2.0 1.6-2.6 mg/dL Direct Bilirubin 0.3 <0.3 mg/dL C-Reactive Protein High Sensitivity 8.66 H <1.0 mg/dL Beta-Hydroxybutyric Acid 0.412 H < 0.4 mmol/L Microbiology Date/Time Source Procedure Growth Status 09/16/24 17:00 Ankle Gram Stain - Final Resulted 09/16/24 17:00 Ankle Wound Culture - Preliminary Resulted 09/15/24 22:22 Blood Blood Culture - Final Staphylococcus aureus Complete Problems(with codes): (1) Hyperglycemia (2) Cellulitis of right foot (3) New onset type 2 diabetes mellitus Plan/Recommendation ASSESSMENT: Patient is a 28 year old seen on the floor for a worsening ulcer with fluctuance PLAN: - The patients chart was reviewed, clinical findings were discussed with the patient, the etiologies of the conditions were discussed in detail, and a treatment plan was agreed to at this time, with both oral and written instructions provided. - reviewed advanced imaging - discussed plan is to perform an incision and drainage - patient will be NPO at midnight - take him to the OR today - we will get cultures in the OR - can weightbear as tolerated in postoperative shoe All questions were answered and concerns addressed to the patient's satisfaction. The patient was given the phone number to the clinic and was told how to make contact with the clinic should any concerns or questions arise. Patient understands that if any questions or concerns arise prior to the next appointment, we should be contacted immediately. FOLLOW-UP: Continue to follow while inpatient Plan discussed with: Patient Date of Service: Sep 18, 2024 Billing Provider: LAYNE VIZCARRA DPM Common Visit Codes: CONSULT ONLY Consultation Codes: [id number] CONSULT <80MIN LAYNE VIZCARRA DPM Sep 18, 2024 11:47
[2024-09-18] MEDS: BUPIVACAINE 0.5% P/F INJ 10 ML VIAL ONE (11:59)
[2024-09-18] MEDS ORDERED: HYDROmorphone HCL 2 MG/ML VL/or syr IV PRN (14:15)
[2024-09-18] MEDS: ONDANSETRON HCL 4 MG/2 ML VIAL IV ONE (14:15)
[2024-09-18] MEDS ORDERED: MIDAZOLAM HCL 2MG/2ML 2ml VIAL (1mg/ml) ONE (14:17)
[2024-09-18] MEDS ORDERED: ONDANSETRON HCL 4 MG/2 ML VIAL ONE (14:18)
[2024-09-18] MEDS ORDERED: PROPOFOL 10 MG/ML 20 ML IV ONE (14:18)
[2024-09-18] MEDS ORDERED: GLYCOPYRROLATE 0.2 MG/ML 1ML VIAL ONE (14:18)
--- NOTE | 2024-09-18 14:35 | DVHOP2 ---
Operative Report - 2 Report Details Date: 09/18/24 Preop Diagnosis: 1. Left foot abscess 2. Left foot necrotizing fasciitis 3. Left foot cellulitis 4. Left foot diabetic ulcer Postop Diagnosis: Same as preop Surgeon: Layne Vizcarra MD Anesthesiologist: See anesthesia Anesthesia: Mac Consent: The patient was informed of the risks and benefits of the procedure. These include but are not limited to complications of anesthesia, postoperative infection, incomplete relief of symptoms, recurrence of symptoms, damage to blood vessels, nerves and tendons, deep venous thrombosis, pulmonary embolism and possible need for repeat surgery in the future. Complications: None Estimated Blood Loss: Minimal Fluids: See anesthesia Findings: Consistent with the diagnosis Indications for Surgery: Worsening left foot wound Name of Procedure Performed 1. Left foot I&D to bone (50298) Procedure Details Procedure Details: PRE-PROCEDURE INFORMATION: In the pre-op holding area, the extremity to be operated on was clearly marked and the patient verified correct laterality of the marking. The patient was transferred to the OR table and placed in a supine position. A timeout was performed in which identification of the correct patient, procedure, location, and materials was done. The left foot and leg were prepped and draped in normal sterile fashion. DESCRIPTION OF PROCEDURE: Attention was directed to the left where area of fluctuance was noted. An incision was made over this area and was deepened through blunt dissection. The incision was deepened to the level of abscess and bone. Care was taken to the dissection to avoid any neurovascular and tendinous structures. The incision was deepened to the bone, and the abscess appeared to be purulent fluid consistent with pus. The cortices of the bone was then removed with rongeur an all necrotic tissue. After the abscess was drained, the area was irrigated with 3 L normal saline using cysto tubing. Deep cultures were then obtained from the wound. The area was then inspected and any areas of tracking, especially along the tendons were also drained. The wound was packed with Betadine-soaked gauze and we will need to be closed at a later date. POSTOPERATIVE INFORMATION: The patient tolerated the above noted procedure and anesthesia well and was transferred to the PACU with vital signs stable, and vascular status intact with capillary refill intact to all digits. Patient will return to the floor and continue IV antibiotics. Cultures were taken. Patient can weightbear as tolerated in a postoperative shoe. Condition Good Disposition Still a Patient LAYNE VIZCARRA DPM Sep 18, 2024 14:34
--- NOTE | 2024-09-18 14:51 | DVHPNRES ---
Progress Note Date Seen: Sep 18, 2024 Resident Creating Document: ERENDIRA SMITH RESIDENT Medical Necessity Reason Pt with a Central, PICC or Fol: No Subjective Review of Systems Patient reported [id number] pain in the right ankle Area of redness and swelling has increased Reports feeling better than when he came in Denied palpitations, chest pain, shortness of breath Objective vital signs Vital Sign Date Time Temp Pulse Resp B/P (MAP) Pulse Ox O2 Delivery O2 Flow Rate FiO2 09/18/24 13:00 98.7 103 19 154/93 (113) 92 98.7 09/18/24 08:00 Room Air* 0 21 Total Intake and Output 09/17/24 09/17/24 09/18/24 15:00 23:00 07:00 Intake Total 350 ml 910 ml 750 ml Output Total 1200 ml 950 ml Balance 350 ml -290 ml -200 ml medications Current Medications Medications Dose Ordered Sig/Nathan Route Start Time Stop Time Status Last Admin Dose Admin Vancomycin HCl 0 ml @ 0 mls/hr UD IV 09/15/24 21:45 Cefepime HCl 50 ml @ 12.5 mls/hr Q8HR IV 09/15/24 22:00 09/18/24 05:53 12.5 MLS/HR Acetaminophen/ Hydrocodone Bitart 1 tab Q4HPRN PRN PO 09/15/24 21:45 Acetaminophen 650 mg Q6HP PRN PO 09/15/24 21:45 09/15/24 23:46 650 MG Diagnostic Test (Pha) 1 strip IQ4HR 09/16/24 00:00 09/18/24 11:55 1 STRIP Insulin Human Regular IQ4HR SC 09/16/24 00:00 09/18/24 05:52 3 UNITS Dextrose 50 ml UD PRN IV 09/15/24 21:45 Metronidazole 100 ml @ 100 mls/hr Q8HR IV 09/16/24 14:00 09/18/24 05:53 100 MLS/HR Vancomycin HCl 250 ml @ 200 mls/hr Q8H IV 09/16/24 13:00 09/18/24 05:53 200 MLS/HR Insulin Glargine 20 units DAILY@1000 SC 09/18/24 10:00 09/18/24 08:39 20 UNITS Hydromorphone HCl 0.5 mg Q10M PRN IV 09/18/24 14:15 09/18/24 18:00 Examination Constitutional: Patient was alert and oriented to time, place and person and does not appear to be in any acute distress Gen - no pallor, no icterus, no cyanosis, no clubbing, no LAD Skin - Patients skin is warm and dry. HEENT - normocephalic, atraumatic, moist mucous membranes. Neck - full ROM, no LAD Pulmonary - B/L vesicular breath sounds. no crackles , no wheezing cardiovascular - normal S1,S2 heard. no murmurs heard. peripheral pulses normal radial 2+, pedal 2+. capillary refill normal <2 secs. GI - soft abdomen without tenderness to palpation. no hepatospleenomegaly. Bowel sounds normoactive Neurological - Bilateral upper extremity strength 5/5, bilateral lower extremity strength 5/5, no facial droop, normal speech, no tremor, no sensory deficiets. Extremities: Right ankle is swollen and red. Ulcer with the back of the heel with no overt drainage. Area of erythema has increased beyond the area marked on 09/16. laboratory and microbiology Laboratory Tests 09/18/24 12:05 09/18/24 04:52 Test 09/18/24 04:52 Range/Units Serum Glucose 173 H 74-106 mg/dL Microbiology Date/Time Source Procedure Growth Status 09/17/24 17:16 Blood Blood Culture - Preliminary Resulted 09/16/24 17:00 Ankle Gram Stain - Final Resulted 09/16/24 17:00 Ankle Wound Culture - Preliminary Resulted Problem List/Assessment/Plan Problem List/Assessment/Plan Sepsis likely due to foot ulcer Cellulitis Diabetic foot ulcer R/O osteomyelitis - elevated ESR 62 and CRP 8.66 - foot CT shows mild soft tissue edema, no focal fluid collection or subcutaneous emphysema, no evidence of acute fracture, dislocation, osseous erosion, blastic or lytic lesion - MRI foot showed Focal fluid collection along the lateral aspect of the hindfoot, adjacent to the posterior calcaneus achilles tendon insertion and abutting the posterior skin surface, possible abscess - blood cultures growing staph aureus - patient was on vancomycin IV, cefepime IV, metronidazole IV - IV fluids - Podiatary consulted with - I & D done - continue inpatient monitoring Uncontrolled type 2 diabetes mellitus - HbA1c 11.8% - patient is on insulin Lantus 20 units - moderate insulin sliding scale - on consistent carbohydrate diet Goals of care discussed with the patient for over 25 minutes. Full code Plan discussed with Dr. Blackwell Plan discussed with: Patient Date of Service: Sep 18, 2024 Billing Provider: VIJAYA BLACKWELL MD Common Visit Codes: [id number] INP/OBS CARE(HIGH) ERENDIRA SMITH RESIDENT Sep 18, 2024 14:51 VIJAYA BLACKWELL MD Sep 24, 2024 15:36
[2024-09-19] VITALS (7 sets, daily range): BP systolic 124–150; BP diastolic 79–99; PULSE 92–103; RESP 18–20; TEMP 97.9–99.4; O2SAT 93–100
[2024-09-19 07:34] LABS: Anion Gap 12 (5-15); Calcium 9.1 mg/dL (8.7-10.4); Carbon Dioxide 21 mmol/L (20-31); Chloride 100 mmol/L (98-107); Potassium 3.6 mmol/L (3.5-5.1)
[2024-09-19 07:39] LABS: Hematocrit 33.3 % (41.0-53.0); Hemoglobin 11.8 g/dL (13.5-17.5); Mean Corpuscular Hemoglobin 29.1 pg (28.0-32.0); Mean Corpuscular Hgb Conc. 35.4 g/dL (32.0-36.0); Mean Corpuscular Volume 82.1 fL (80.0-100.0); Platelet Count (auto) 211 10^3/uL (140-450); Red Blood Cells 4.06 10^6/uL (4.5-5.90); Red Cell Distribution Width 12.1 % (11.8-14.3); White Blood Cell 5.9 10^3/uL (4.4-10.8)
[2024-09-19 07:40] LABS: BUN/Creatinine Ratio 10.3 (10.0-20.0)
[2024-09-19 07:48] LABS: Band Neutrophils % (manual) 0; Basophils % (manual) 0 (0.0-2.0); Blast Cells 0; Metamyelocytes % 0; Myelocytes % 0; Promyelocytes % 0; Reactive Lymphocytes 0
[2024-09-19 07:49] LABS: Blood Urea Nitrogen 8 mg/dL (9-23); Glucose 143 mg/dL (74-106); Sodium 133 mmol/L (136-145)
[2024-09-19 09:57] LABS: Eosinophils % (manual) 1 (0-7); Lymphocytes % (manual) 28 (10.0-50.0); Monocytes % (manual) 10 (0-12); Platelet Estimate Adequate
--- NOTE | 2024-09-19 13:35 | DVHPN2 ---
Subjective This is a 28-year-old male with fecal past medical history came to the hospital due to foot wound. Per patient, he changes shows 1 week back which was not properly feet (use for 1 day), 3 days later his noticed a blister at the heel of right foot, which progressively enlarged, and burst. The patient did not noticed the ulcer at the beginning, did not feel any pain. Today, right leg is pollen/rate at the level of ankle with mild tenderness. At ER, glucose was 441. Changes from previous H/P or p: No Changes Objective Vitals Vital Signs Date Time Temp Pulse Resp B/P (MAP) Pulse Ox O2 Delivery O2 Flow Rate FiO2 09/19/24 09:00 99.3 103 19 133/84 (100) 96 99.3 09/19/24 08:00 Room Air* 0 21 Intake/Output Intake and Output 09/19/24 07:00 Intake Total 1950 ml Balance 1950 ml Intake Oral 800 ml IV Total 1150 ml # Voids 6 Exam DERMATOLOGIC EXAM: - Skin is dry and cool to the touch dry bilaterally. - Nails 1-5 of the bilateral foot are thickened, discolored, dystrophic, and tender to palpate with subungual debris - Hair loss noted to bilateral feet Wound #1: Location: Left lateral heel Measurements: Length 1 cm cm x width 1 cm cm x depth 1 cm cm. Wound margins: Hyperkeratotic. Wound base: Full thickness. General Appearance: Fluctuant Probes to Bone: No Purulent drainage: The S Serous drainage: No Erythema: Heel VASCULAR EXAM: - DP and PT pulses are palpable bilaterally. - CHILD DEVELOPMENT ASSOCIATE TEACHER is brisk to all digits. - Feet are cool to touch compared to lower legs bilaterally. NEUROLOGIC EXAM: - Normal light touch sensation to the superficial peroneal, deep peroneal, sural, saphenous, and tibial nerve branches. - Protective sensation is diminished as tested with a 5.07 10g [place] bilaterally. MUSCULOSKELETAL EXAM: - No gross deformities - Muscle strength is 5/5 and active motion is pain-free and symmetrical bilaterally - No pain or crepitation with passive range of motion bilaterally to all major pedal joints Medications Current Medications Medications Dose Ordered Sig/Nathan Route Start Time Stop Time Status Last Admin Dose Admin Vancomycin HCl 0 ml @ 0 mls/hr UD IV 09/15/24 21:45 Cefepime HCl 50 ml @ 12.5 mls/hr Q8HR IV 09/15/24 22:00 09/18/24 22:32 12.5 MLS/HR Acetaminophen/ Hydrocodone Bitart 1 tab Q4HPRN PRN PO 09/15/24 21:45 Acetaminophen 650 mg Q6HP PRN PO 09/15/24 21:45 09/15/24 23:46 650 MG Diagnostic Test (Pha) 1 strip IQ4HR 09/16/24 00:00 09/19/24 11:48 1 STRIP Insulin Human Regular IQ4HR SC 09/16/24 00:00 09/19/24 11:53 3 UNITS Dextrose 50 ml UD PRN IV 09/15/24 21:45 Metronidazole 100 ml @ 100 mls/hr Q8HR IV 09/16/24 14:00 09/19/24 05:36 100 MLS/HR Vancomycin HCl 250 ml @ 200 mls/hr Q8H IV 09/16/24 13:00 09/19/24 04:50 200 MLS/HR Insulin Glargine 20 units DAILY@1000 SC 09/18/24 10:00 09/19/24 09:28 20 UNITS Laboratory Results Laboratory Tests 09/19/24 06:45 Chemistry Test 09/19/24 06:45 Calcium Level 9.1 mg/dL (8.7-10.4) Urinalysis Test 09/16/24 11:50 Urine Color Yellow (Yellow) Urine Clarity Clear (Clear) Urine pH 5.5 (5.0-9.0) Urine Specific [place] 1.037 (1.001-1.035) Urine Protein Trace (Negative) H Urine Ketones 2+ (Negative) H Urine Blood Negative /uL (Negative) Urine Nitrite Negative (Negative) Urine Bilirubin Negative (Negative) Urine Urobilinogen Normal mg/dL (Negative) Urine Leukocyte Esterase Negative /uL (Negative) Urine RBC <1 /hpf (0 - 3) Urine Microscopic WBC 1 /HPF (0-3) Urine Squamous Epithelial Cells None seen /hpf (<5) Urine Bacteria None seen /hpf (None Seen) Urine Glucose 4+ mg/dL (Normal) H Microbiology Microbiology Date/Time Source Procedure Growth Status 09/18/24 14:25 Foot Right Gram Stain Pending Resulted 09/18/24 14: Foot Right Anaerobic Culture - Preliminary Resulted 09/18/24 14:25 Foot Right Aerobic Culture Pending Resulted 09/17/24 17:25 Blood Blood Culture - Preliminary NO GROWTH AFTER 24 HOURS OF INCUBATION. Resulted Assessment/Plan Assessment/Plan ASSESSMENT: Patient is a 28 year old seen on the floor follow up s/p foot I&D PLAN: - The patients chart was reviewed, clinical findings were discussed with the patient, the etiologies of the conditions were discussed in detail, and a treatment plan was agreed to at this time, with both oral and written instructions provided. - reviewed advanced imaging - reviewed all of the labs and pathology - discussed plan is to perform a subsequent incision and drainage - patient will be NPO at midnight - take him to the OR tomorrow - can weightbear as tolerated in postoperative shoe All questions were answered and concerns addressed to the patient's satisfaction. The patient was given the phone number to the clinic and was told how to make contact with the clinic should any concerns or questions arise. Patient understands that if any questions or concerns arise prior to the next appointment, we should be contacted immediately. FOLLOW-UP: Continue to follow while inpatient Plan discussed with: Patient My Orders Orders - LAYNE VIZCARRA DPM Procedure Category Date Status Time Routine Bacterial TERRY 09/18/24 In Process Culture 14:28 Anaerobic Culture TERRY 09/18/24 In Process 14:28 Gram Stain TERRY 09/18/24 In Process 14:28 Npo After Midnight DIET 09/19/24 Verified Dinner Obtain Consent For: ORDERS 09/19/24 Verified 13:34 Problem List: (1) Hyperglycemia (2) Cellulitis of right foot (3) New onset type 2 diabetes mellitus Date of Service: Sep 19, 2024 Billing Provider: LAYNE VIZCARRA DPM Common Visit Codes: [id number] INP/OBS CARE(MOD) LAYNE VIZCARRA DPM Sep 19, 2024 13:35
[2024-09-19 15:27] LABS: INR 1.15 (0.9-1.15)
--- NOTE | 2024-09-19 19:40 | DVHPNRES ---
Progress Note Date Seen: Sep 19, 2024 Resident Creating Document: JHDemarioJERENDIRA Wen RESIDENT Medical Necessity Reason Pt with a Central, PICC or Fol: No Subjective Review of Systems patient underwent a I & D with podiatary yesterday tolerated the procedure well. denies pain in the foot no other acute complaints Objective vital signs Vital Sign Date Time Temp Pulse Resp B/P (MAP) Pulse Ox O2 Delivery O2 Flow Rate FiO2 09/19/24 17:00 98.9 100 20 150/99 (116) 97 98.9 09/19/24 08:00 Room Air* 0 21 Total Intake and Output 09/18/24 09/18/24 09/19/24 15:00 23:00 07:00 Intake Total 750 ml 1200 ml Balance 750 ml 1200 ml medications Current Medications Medications Dose Ordered Sig/Nathan Route Start Time Stop Time Status Last Admin Dose Admin Vancomycin HCl 0 ml @ 0 mls/hr UD IV 09/15/24 21:45 Cefepime HCl 50 ml @ 12.5 mls/hr Q8HR IV 09/15/24 22:00 09/19/24 14:13 12.5 MLS/HR Acetaminophen/ Hydrocodone Bitart 1 tab Q4HPRN PRN PO 09/15/24 21:45 Acetaminophen 650 mg Q6HP PRN PO 09/15/24 21:45 09/15/24 23:46 650 MG Diagnostic Test (Pha) 1 strip IQ4HR 09/16/24 00:00 09/19/24 16:20 1 STRIP Insulin Human Regular IQ4HR SC 09/16/24 00:00 09/19/24 16:20 3 UNITS Dextrose 50 ml UD PRN IV 09/15/24 21:45 Metronidazole 100 ml @ 100 mls/hr Q8HR IV 09/16/24 14:00 09/19/24 14:13 100 MLS/HR Vancomycin HCl 250 ml @ 200 mls/hr Q8H IV 09/16/24 13:00 09/19/24 13:50 200 MLS/HR Insulin Glargine 20 units DAILY@1000 SC 09/18/24 10:00 09/19/24 09:28 20 UNITS Examination Constitutional: Patient was alert and oriented to time, place and person and does not appear to be in any acute distress Gen - no pallor, no icterus, no cyanosis, no clubbing, no LAD Skin - Patients skin is warm and dry. HEENT - normocephalic, atraumatic, moist mucous membranes. Neck - full ROM, no LAD Pulmonary - B/L vesicular breath sounds. no crackles , no wheezing cardiovascular - normal S1,S2 heard. no murmurs heard. peripheral pulses normal radial 2+, pedal 2+. capillary refill normal <2 secs. GI - soft abdomen without tenderness to palpation. no hepatospleenomegaly. Bowel sounds normoactive Neurological - Bilateral upper extremity strength 5/5, bilateral lower extremity strength 5/5, no facial droop, normal speech, no tremor, no sensory deficiets. Extremities: right foot s/p I&D draped in a sterile dressing laboratory and microbiology Laboratory Tests 09/19/24 06:45 Test 09/19/24 06:45 Range/Units Serum Glucose 143 H 74-106 mg/dL Microbiology Date/Time Source Procedure Growth Status 09/18/24 14:25 Foot Right Gram Stain - Final Resulted 09/18/24 14:25 Foot Right Anaerobic Culture - Preliminary Resulted 09/18/24 14:25 Foot Right Aerobic Culture - Preliminary Resulted 09/17/24 17:25 Blood Blood Culture - Preliminary NO GROWTH AFTER 48 HOURS OF INCUBATION. Resulted Problem List/Assessment/Plan Problem List/Assessment/Plan Sepsis likely due to foot ulcer Cellulitis Diabetic foot ulcer R/O osteomyelitis - elevated ESR 62 and CRP 8.66 - foot CT shows mild soft tissue edema, no focal fluid collection or subcutaneous emphysema, no evidence of acute fracture, dislocation, osseous erosion, blastic or lytic lesion - MRI foot showed Focal fluid collection along the lateral aspect of the hindfoot, adjacent to the posterior calcaneus achilles tendon insertion and abutting the posterior skin surface, possible abscess - blood cultures growing staph aureus - patient was on vancomycin IV, cefepime IV, metronidazole IV - IV fluids - Podiatary consulted with - I & D done - continue inpatient monitoring - to be taken for followup surgery for closure tomorrow - [facility] for IV antibiotics Uncontrolled type 2 diabetes mellitus - HbA1c 11.8% - patient is on insulin Lantus 20 units - moderate insulin sliding scale - on consistent carbohydrate diet Goals of care discussed with the patient for over 25 minutes. Full code Plan discussed with Dr. Mook Fortune discussed with: Patient Dietary Evaluation Review Comments: Holger BID for wound healing. Increase his dietarty needs to CCHO-75 based on his wt and height. Expected Outcomes/Goals: controlled Blood glucose, healed wounds, gradual wt loss. Date of Service: Sep 19, 2024 Billing Provider: VIJAYA BLACKWELL MD Common Visit Codes: [id number] INP/OBS CARE(HIGH) ERENDIRA SMITH RESIDENT Sep 19, 2024 19:40 VIJAYA BLACKWELL MD Sep 24, 2024 15:37
[2024-09-20] VITALS (9 sets, daily range): BP systolic 121–146; BP diastolic 79–100; PULSE 88–99; RESP 14–20; TEMP 97.7–98.9; O2SAT 96–98
[2024-09-20 06:40] LABS: Chloride 103 mmol/L (98-107); Potassium 3.7 mmol/L (3.5-5.1)
[2024-09-20 06:41] LABS: Anion Gap 10 (5-15); Calcium 8.8 mg/dL (8.7-10.4); Carbon Dioxide 23 mmol/L (20-31)
[2024-09-20 06:46] LABS: BUN/Creatinine Ratio 9.6 (10.0-20.0)
[2024-09-20 06:48] LABS: Blood Urea Nitrogen 8 mg/dL (9-23); Glucose 169 mg/dL (74-106); Hemoglobin 12.2 g/dL (13.5-17.5); Mean Corpuscular Hemoglobin 28.7 pg (28.0-32.0); Mean Corpuscular Hgb Conc. 34.9 g/dL (32.0-36.0); Mean Corpuscular Volume 82.3 fL (80.0-100.0); Platelet Count (auto) 234 10^3/uL (140-450); Red Blood Cells 4.26 10^6/uL (4.5-5.90); Sodium 136 mmol/L (136-145); White Blood Cell 3.9 10^3/uL (4.4-10.8)
[2024-09-20 07:28] LABS: Basophils % (manual) 0 (0.0-2.0); Blast Cells 0; Metamyelocytes % 0; Myelocytes % 0; Promyelocytes % 0; Reactive Lymphocytes 0
[2024-09-20] MEDS ORDERED: GLYCOPYRROLATE 0.2 MG/ML 1ML VIAL ONE (08:47)
[2024-09-20] MEDS ORDERED: MIDAZOLAM HCL 2MG/2ML 2ml VIAL (1mg/ml) ONE (08:47)
[2024-09-20] MEDS ORDERED: KETAMINE 50mg/ML 1ml syringe ONE (08:47)
[2024-09-20] MEDS ORDERED: ONDANSETRON HCL 4 MG/2 ML VIAL ONE (08:47)
[2024-09-20] MEDS ORDERED: PROPOFOL 10 MG/ML 20 ML IV ONE (08:47)
[2024-09-20 09:00] LABS: Band Neutrophils % (manual) 3; Eosinophils % (manual) 7 (0-7); Lymphocytes % (manual) 25 (10.0-50.0); Monocytes % (manual) 18 (0-12)
[2024-09-20 09:01] LABS: Platelet Estimate Adequate
--- NOTE | 2024-09-20 09:08 | DVHPN2 ---
Subjective This is a 28-year-old male with fecal past medical history came to the hospital due to foot wound. Per patient, he changes shows 1 week back which was not properly feet (use for 1 day), 3 days later his noticed a blister at the heel of right foot, which progressively enlarged, and burst. The patient did not noticed the ulcer at the beginning, did not feel any pain. Today, right leg is pollen/rate at the level of ankle with mild tenderness. At ER, glucose was 441. Changes from previous H/P or p: No Changes Objective Vitals Vital Signs Date Time Temp Pulse Resp B/P (MAP) Pulse Ox O2 Delivery O2 Flow Rate FiO2 09/20/24 05:00 98.7 92 18 142/94 (110) 98 98.7 09/19/24 20:00 Room Air* 0 21 Intake/Output Intake and Output 09/20/24 07:00 Intake Total 2448 ml Balance 2448 ml Intake Oral 1448 ml IV Total 1000 ml # Voids 3 Exam DERMATOLOGIC EXAM: - Skin is dry and cool to the touch dry bilaterally. - Nails 1-5 of the bilateral foot are thickened, discolored, dystrophic, and tender to palpate with subungual debris - Hair loss noted to bilateral feet Wound #1: Location: Left lateral heel Measurements: Length 1 cm cm x width 1 cm cm x depth 1 cm cm. Wound margins: Hyperkeratotic. Wound base: Full thickness. General Appearance: Fluctuant Probes to Bone: No Purulent drainage: The S Serous drainage: No Erythema: Heel VASCULAR EXAM: - DP and PT pulses are palpable bilaterally. - GUIDE [employer]G [employer] is brisk to all digits. - Feet are cool to touch compared to lower legs bilaterally. NEUROLOGIC EXAM: - Normal light touch sensation to the superficial peroneal, deep peroneal, sural, saphenous, and tibial nerve branches. - Protective sensation is diminished as tested with a 5.07 10g [place] bilaterally. MUSCULOSKELETAL EXAM: - No gross deformities - Muscle strength is 5/5 and active motion is pain-free and symmetrical bilaterally - No pain or crepitation with passive range of motion bilaterally to all major pedal joints Medications Current Medications Medications Dose Ordered Sig/Nathan Route Start Time Stop Time Status Last Admin Dose Admin Vancomycin HCl 0 ml @ 0 mls/hr UD IV 09/15/24 21:45 Cefepime HCl 50 ml @ 12.5 mls/hr Q8HR IV 09/15/24 22:00 09/20/24 06:30 12.5 MLS/HR Acetaminophen/ Hydrocodone Bitart 1 tab Q4HPRN PRN PO 09/15/24 21:45 Acetaminophen 650 mg Q6HP PRN PO 09/15/24 21:45 09/15/24 23:46 650 MG Diagnostic Test (Pha) 1 strip IQ4HR 09/16/24 00:00 09/20/24 08:28 1 STRIP Insulin Human Regular IQ4HR SC 09/16/24 00:00 09/20/24 04:30 2 UNITS Dextrose 50 ml UD PRN IV 09/15/24 21:45 Metronidazole 100 ml @ 100 mls/hr Q8HR IV 09/16/24 14:00 09/20/24 06:30 100 MLS/HR Vancomycin HCl 250 ml @ 200 mls/hr Q8H IV 09/16/24 13:00 09/20/24 04:18 200 MLS/HR Insulin Glargine 20 units DAILY@1000 SC 09/18/24 10:00 09/19/24 09:28 20 UNITS Laboratory Results Laboratory Tests 09/20/24 06:14 Chemistry Test 09/20/24 06:14 Calcium Level 8.8 mg/dL (8.7-10.4) Coagulation Test 09/19/24 14:37 Prothrombin Time 12.0 sec (9.3-11.8) H Prothrombin Time INR 1.15 (0.9-1.15) Activated Partial Thromboplast Time 29.0 SEC (24.5-34.5) Urinalysis Test 09/16/24 11:50 Urine Color Yellow (Yellow) Urine Clarity Clear (Clear) Urine pH 5.5 (5.0-9.0) Urine Specific [place] 1.037 (1.001-1.035) Urine Protein Trace (Negative) H Urine Ketones 2+ (Negative) H Urine Blood Negative /uL (Negative) Urine Nitrite Negative (Negative) Urine Bilirubin Negative (Negative) Urine Urobilinogen Normal mg/dL (Negative) Urine Leukocyte Esterase Negative /uL (Negative) Urine RBC <1 /hpf (0 - 3) Urine Microscopic WBC 1 /HPF (0-3) Urine Squamous Epithelial Cells None seen /hpf (<5) Urine Bacteria None seen /hpf (None Seen) Urine Glucose 4+ mg/dL (Normal) H Microbiology Microbiology Date/Time Source Procedure Growth Status 09/18/24 14:25 Foot Right Gram Stain - Final Resulted 09/18/24 14:25 Foot Right Anaerobic Culture - Preliminary Resulted 09/18/24 14:25 Foot Right Aerobic Culture - Preliminary Resulted 09/17/24 17:25 Blood Blood Culture - Preliminary NO GROWTH AFTER 48 HOURS OF INCUBATION. Resulted Assessment/Plan Assessment/Plan ASSESSMENT: Patient is a 28 year old seen on the floor follow up s/p foot I&D PLAN: - The patients chart was reviewed, clinical findings were discussed with the patient, the etiologies of the conditions were discussed in detail, and a treatment plan was agreed to at this time, with both oral and written instructions provided. - reviewed advanced imaging - reviewed all of the labs and pathology - discussed plan is to perform a subsequent incision and drainage - patient will be NPO at midnight - take him to the OR today - can weightbear as tolerated in postoperative shoe All questions were answered and concerns addressed to the patient's satisfaction. The patient was given the phone number to the clinic and was told how to make contact with the clinic should any concerns or questions arise. Patient understands that if any questions or concerns arise prior to the next appointment, we should be contacted immediately. FOLLOW-UP: Continue to follow while inpatient Plan discussed with: Patient My Orders Orders - LAYNE VIZCARRA DPM Procedure Category Date Status Time Npo After Midnight DIET 09/19/24 Transmitted Dinner Obtain Consent For: ORDERS 09/19/24 Transmitted 13:34 Problem List: (1) Hyperglycemia (2) Cellulitis of right foot (3) New onset type 2 diabetes mellitus Date of Service: Sep 20, 2024 Billing Provider: LAYNE VIZCARRA DPM Common Visit Codes: [id number] INP/OBS CARE(MOD) LAYNE VIZCARRA DPM Sep 20, 2024 09:07
[2024-09-20] MEDS ORDERED: HYDROmorphone HCL 2 MG/ML VL/or syr ONE (09:17)
[2024-09-20] MEDS: VANCOMYCIN HCL 1000 MG VL ONE (09:20)
[2024-09-20] MEDS ORDERED: MEPERIDINE HCL (25 MG/ML) 1ML VIAL ONE (10:38)
--- NOTE | 2024-09-20 10:44 | DVHOP2 ---
Operative Report - 2 Report Details Date: 09/20/24 Preop Diagnosis: 1. Left foot abscess 2. Left foot necrotizing fasciitis 3. Left foot cellulitis 4. Left foot diabetic ulcer Postop Diagnosis: Same as preop Surgeon: Layne Vizcarra MD Anesthesiologist: See anesthesia Anesthesia: Mac Consent: The patient was informed of the risks and benefits of the procedure. These include but are not limited to complications of anesthesia, postoperative infection, incomplete relief of symptoms, recurrence of symptoms, damage to blood vessels, nerves and tendons, deep venous thrombosis, pulmonary embolism and possible need for repeat surgery in the future. Complications: None Estimated Blood Loss: Minimal Fluids: See anesthesia Findings: Consistent with the diagnosis Indications for Surgery: Worsening left foot wound Name of Procedure Performed 1. Left foot I&D to bone (17865) 2. Left foot delayed closure (94617) Procedure Details Procedure Details: PRE-PROCEDURE INFORMATION: In the pre-op holding area, the extremity to be operated on was clearly marked and the patient verified correct laterality of the marking. The patient was transferred to the OR table and placed in a supine position. A timeout was performed in which identification of the correct patient, procedure, location, and materials was done. The left foot and leg were prepped and draped in normal sterile fashion. DESCRIPTION OF PROCEDURE: Attention was directed to the left where area of fluctuance was noted. An incision was made over this area and was deepened through blunt dissection. The incision was deepened to the level of abscess and bone. Care was taken to the dissection to avoid any neurovascular and tendinous structures. The incision was deepened to the bone, and the abscess appeared to be purulent fluid consistent with pus. The cortices of the bone was then removed with rongeur an all necrotic tissue. After the abscess was drained, the area was irrigated with 3 L normal saline using cysto tubing. A delayed closure was then performed using 2-0 nylon after was deemed appropriate with no longer concern for infection. POSTOPERATIVE INFORMATION: The patient tolerated the above noted procedure and anesthesia well and was transferred to the PACU with vital signs stable, and vascular status intact with capillary refill intact to all digits. Patient will return to the floor and continue IV antibiotics. Cultures were taken. Patient can weightbear as tolerated in a postoperative shoe. Condition Good Disposition Still a Patient LAYNE VIZCARRA DPM Sep 20, 2024 10:44
[2024-09-20] MEDS ORDERED: HYDROmorphone HCL 2 MG/ML VL/or syr IV PRN (11:00)
[2024-09-20] MEDS: BUPIVACAINE 0.5% P/F INJ 10 ML VIAL ONE (11:40)
--- NOTE | 2024-09-20 23:00 | DVHPNRES ---
Progress Note Date Seen: Sep 20, 2024 Resident Creating Document: JHERENDIRA GARCIA RESIDENT Medical Necessity Reason Pt with a Central, PICC or Fol: No Subjective Review of Systems patient underwent a I & D with podiatary today tolerated the procedure well. denies pain in the foot no other acute complaints Objective vital signs Vital Sign Date Time Temp Pulse Resp B/P (MAP) Pulse Ox O2 Delivery O2 Flow Rate FiO2 09/20/24 21:00 98.0 99 20 130/80 (97) 97 98.0 09/20/24 20:00 Room Air* 0 21 Total Intake and Output 09/19/24 09/19/24 09/20/24 15:00 23:00 07:00 Intake Total 1428 ml 1020 ml Balance 1428 ml 1020 ml medications Current Medications Medications Dose Ordered Sig/Nathan Route Start Time Stop Time Status Last Admin Dose Admin Vancomycin HCl 0 ml @ 0 mls/hr UD IV 09/15/24 21:45 Acetaminophen/ Hydrocodone Bitart 1 tab Q4HPRN PRN PO 09/15/24 21:45 Acetaminophen 650 mg Q6HP PRN PO 09/15/24 21:45 09/15/24 23:46 650 MG Diagnostic Test (Pha) 1 strip IQ4HR 09/16/24 00:00 09/20/24 20:24 1 STRIP Insulin Human Regular IQ4HR SC 09/16/24 00:00 09/20/24 20:36 6 UNITS Dextrose 50 ml UD PRN IV 09/15/24 21:45 Metronidazole 100 ml @ 100 mls/hr Q8HR IV 09/16/24 14:00 09/20/24 14:43 100 MLS/HR Vancomycin HCl 250 ml @ 200 mls/hr Q8H IV 09/16/24 13:00 09/20/24 20:24 200 MLS/HR Insulin Glargine 20 units DAILY@1000 SC 09/18/24 10:00 09/20/24 12:31 20 UNITS Cefepime HCl 50 ml @ 12.5 mls/hr Q8HR IV 09/21/24 02:00 Examination Constitutional: Patient was alert and oriented to time, place and person and does not appear to be in any acute distress Gen - no pallor, no icterus, no cyanosis, no clubbing, no LAD Skin - Patients skin is warm and dry. HEENT - normocephalic, atraumatic, moist mucous membranes. Neck - full ROM, no LAD Pulmonary - B/L vesicular breath sounds. no crackles , no wheezing cardiovascular - normal S1,S2 heard. no murmurs heard. peripheral pulses normal radial 2+, pedal 2+. capillary refill normal <2 secs. GI - soft abdomen without tenderness to palpation. no hepatospleenomegaly. Bowel sounds normoactive Neurological - Bilateral upper extremity strength 5/5, bilateral lower extremity strength 5/5, no facial droop, normal speech, no tremor, no sensory deficiets. Extremities: right foot s/p I&D draped in a sterile dressing laboratory and microbiology Laboratory Tests 09/20/24 06:14 Test 09/20/24 06:14 Range/Units Serum Glucose 169 H 74-106 mg/dL Microbiology Date/Time Source Procedure Growth Status 09/18/24 14: Foot Right Gram Stain - Final Resulted 09/18/24 14:25 Foot Right Anaerobic Culture - Preliminary Resulted 09/18/24 14: Foot Right Aerobic Culture - Preliminary Resulted 09/17/24 17:25 Blood Blood Culture - Preliminary NO GROWTH AFTER 72 HOURS OF INCUBATION. Resulted Problem List/Assessment/Plan Problem List/Assessment/Plan Sepsis likely due to foot ulcer Cellulitis Diabetic foot ulcer R/O osteomyelitis - elevated ESR 62 and CRP 8.66 - foot CT shows mild soft tissue edema, no focal fluid collection or subcutaneous emphysema, no evidence of acute fracture, dislocation, osseous erosion, blastic or lytic lesion - MRI foot showed Focal fluid collection along the lateral aspect of the hindfoot, adjacent to the posterior calcaneus achilles tendon insertion and abutting the posterior skin surface, possible abscess - blood cultures growing staph aureus - patient was on vancomycin IV, cefepime IV, metronidazole IV - IV fluids - Podiatary consulted with - I & D done - continue inpatient monitoring - surgery for closure done today Uncontrolled type 2 diabetes mellitus - HbA1c 11.8% - patient is on insulin Lantus 20 units - moderate insulin sliding scale - on consistent carbohydrate diet As the patient does not have insurance, discussed with him about the need for IV antibiotics on discharge and would have to pay on his own. patient wants to talk to his and then make a decision. Goals of care discussed with the patient for over 25 minutes. Full code Plan discussed with Dr. Blackwell Plan discussed with: Patient My Orders My Orders Orders - ERENDIRA SMITH Procedure Category Date Status Time Consistent DIET 09/20/24 Transmitted Carb(Ccho)Diabetes Lunch Dietary Evaluation Review Comments: Holger BID for wound healing. Increase his dietarty needs to CCHO-75 based on his wt and height. Expected Outcomes/Goals: controlled Blood glucose, healed wounds, gradual wt loss. Date of Service: Sep 20, 2024 Billing Provider: VIJAYA BLACKWELL MD Common Visit Codes: [id number] INP/OBS CARE(HIGH) ERENDIRA SMITH Sep 20, 2024 23:00 VIJAYA BLACKWELL MD Sep 24, 2024 15:38
[2024-09-21] VITALS (7 sets, daily range): BP systolic 116–144; BP diastolic 75–92; PULSE 82–99; RESP 17–20; TEMP 97.9–99.4; O2SAT 95–99
[2024-09-21] MEDS: CEFEPIME 1GM/ 50ML 50 ML IV SCH (01:48)
[2024-09-21 06:57] LABS: Basophils # (auto) 0 10 ^3/uL (0-0.2); Basophils % (auto) 0.6 % (0.0-2.0); Eosinophils # (auto) 0.3 10 ^3/uL (0-0.8); Eosinophils % (auto) 7.5 % (0.0-7.0); Hematocrit 34.8 % (41.0-53.0); Hemoglobin 12.3 g/dL (13.5-17.5); Lymphocytes % (auto) 25.9 % (10.0-50.0); Mean Corpuscular Hemoglobin 29.2 pg (28.0-32.0); Mean Corpuscular Hgb Conc. 35.3 g/dL (32.0-36.0); Mean Corpuscular Volume 82.5 fL (80.0-100.0); Monocytes # (auto) 0.6 10 ^3/uL (0-1.3); Monocytes % (auto) 16.4 % (0.0-12.0); Neutrophils # (auto) 1.9 10 ^3/uL (1.6-8.6); Neutrophils % (auto) 49.6 % (37.0-80.0); Nucleated Red Blood Cells % 0.1 %; Platelet Count (auto) 222 10^3/uL (140-450); Red Blood Cells 4.21 10^6/uL (4.5-5.90); White Blood Cell 3.8 10^3/uL (4.4-10.8)
[2024-09-21 07:08] LABS: Chloride 104 mmol/L (98-107); Potassium 3.5 mmol/L (3.5-5.1); Sodium 137 mmol/L (136-145)
[2024-09-21 07:09] LABS: Anion Gap 8 (5-15); Calcium 8.7 mg/dL (8.7-10.4); Carbon Dioxide 25 mmol/L (20-31)
[2024-09-21 07:14] LABS: BUN/Creatinine Ratio 8.3 (10.0-20.0)
[2024-09-21 07:15] LABS: Glucose 167 mg/dL (74-106)
[2024-09-21 07:16] LABS: Blood Urea Nitrogen 7 mg/dL (9-23)
--- NOTE | 2024-09-21 18:23 | DVHPNRES ---
Progress Note Date Seen: Sep 21, 2024 Resident Creating Document: JHDemarioERENDIRA RIVERS RESIDENT Medical Necessity Reason Pt with a Central, PICC or Fol: No Subjective Review of Systems denies pain in the foot no other acute complaints Objective vital signs Vital Sign Date Time Temp Pulse Resp B/P (MAP) Pulse Ox O2 Delivery O2 Flow Rate FiO2 09/21/24 17:00 99.4 89 18 138/91 (107) 98 99.4 09/21/24 08:00 Room Air* 0 21 Total Intake and Output 09/20/24 09/20/24 09/21/24 15:00 23:00 07:00 Intake Total 500 ml 1125 ml 550 ml Output Total 200 ml Balance 500 ml 1125 ml 350 ml medications Current Medications Medications Dose Ordered Sig/Nathan Route Start Time Stop Time Status Last Admin Dose Admin Vancomycin HCl 0 ml @ 0 mls/hr UD IV 09/15/24 21:45 Acetaminophen/ Hydrocodone Bitart 1 tab Q4HPRN PRN PO 09/15/24 21:45 Acetaminophen 650 mg Q6HP PRN PO 09/15/24 21:45 09/15/24 23:46 650 MG Diagnostic Test (Pha) 1 strip IQ4HR 09/16/24 00:00 09/21/24 17:10 1 STRIP Insulin Human Regular IQ4HR SC 09/16/24 00:00 09/21/24 17:13 3 UNITS Dextrose 50 ml UD PRN IV 09/15/24 21:45 Metronidazole 100 ml @ 100 mls/hr Q8HR IV 09/16/24 14:00 09/21/24 13:37 100 MLS/HR Vancomycin HCl 250 ml @ 200 mls/hr Q8H IV 09/16/24 13:00 09/21/24 13:31 200 MLS/HR Insulin Glargine 20 units DAILY@1000 SC 09/18/24 10:00 09/21/24 09:44 20 UNITS Cefepime HCl 50 ml @ 12.5 mls/hr Q8HR IV 09/21/24 02:00 09/21/24 12:56 12.5 MLS/HR Examination Constitutional: Patient was alert and oriented to time, place and person and does not appear to be in any acute distress Gen - no pallor, no icterus, no cyanosis, no clubbing, no LAD Skin - Patients skin is warm and dry. HEENT - normocephalic, atraumatic, moist mucous membranes. Neck - full ROM, no LAD Pulmonary - B/L vesicular breath sounds. no crackles , no wheezing cardiovascular - normal S1,S2 heard. no murmurs heard. peripheral pulses normal radial 2+, pedal 2+. capillary refill normal <2 secs. GI - soft abdomen without tenderness to palpation. no hepatospleenomegaly. Bowel sounds normoactive Neurological - Bilateral upper extremity strength 5/5, bilateral lower extremity strength 5/5, no facial droop, normal speech, no tremor, no sensory deficiets. Extremities: right foot s/p I&D draped in a sterile dressing laboratory and microbiology Laboratory Tests 09/21/24 06:22 Test 09/21/24 06:22 Range/Units Serum Glucose 167 H 74-106 mg/dL Microbiology Date/Time Source Procedure Growth Status 09/18/24 14:25 Foot Right Gram Stain - Final Resulted 09/18/24 14: Foot Right Anaerobic Culture - Preliminary Resulted 09/18/24 14:25 Foot Right Aerobic Culture - Preliminary Resulted 09/17/24 17:25 Blood Blood Culture - Preliminary NO GROWTH AFTER 72 HOURS OF INCUBATION. Resulted Problem List/Assessment/Plan Problem List/Assessment/Plan Sepsis likely due to foot ulcer Cellulitis Diabetic foot ulcer R/O osteomyelitis - elevated ESR 62 and CRP 8.66 - foot CT shows mild soft tissue edema, no focal fluid collection or subcutaneous emphysema, no evidence of acute fracture, dislocation, osseous erosion, blastic or lytic lesion - MRI foot showed Focal fluid collection along the lateral aspect of the hindfoot, adjacent to the posterior calcaneus achilles tendon insertion and abutting the posterior skin surface, possible abscess - blood cultures growing staph aureus - patient was on vancomycin IV, cefepime IV, metronidazole IV - IV fluids - Podiatary consulted with - I & D done - continue inpatient monitoring - surgery for closure done today Uncontrolled type 2 diabetes mellitus - HbA1c 11.8% - patient is on insulin Lantus 20 units - moderate insulin sliding scale - on consistent carbohydrate diet Patient and his were explained in detail about his illness and the need for further inpatient care d/t result of culture and sensitivity from the foot abscess sample. Goals of care discussed with the patient for over 25 minutes. Full code Plan discussed with Dr. Blackwell Plan discussed with: Patient, Spouse Dietary Evaluation Review Comments: Holger BID for wound healing. Increase his dietarty needs to CCHO-75 based on his wt and height. Expected Outcomes/Goals: controlled Blood glucose, healed wounds, gradual wt loss. Date of Service: Sep 21, 2024 Billing Provider: VIJAYA BLACKWELL MD Common Visit Codes: [id number] INP/OBS CARE(MOD) ERENDIRA SMITH RESIDENT Sep 21, 2024 18:23 VIJAYA BLACKWELL MD Sep 24, 2024 15:39
[2024-09-22 01:00] VITALS: BP 147/93; PULSE 80; RESP 20; TEMP 98.3; O2SAT 98
[2024-09-22 05:00] VITALS: BP 123/80; PULSE 86; RESP 20; TEMP 98; O2SAT 97
[2024-09-22 08:00] VITALS: PULSE 86; RESP 20; O2SAT 99
[2024-09-22 09:00] VITALS: BP 121/83; PULSE 85; RESP 16; TEMP 97.9; O2SAT 98
[2024-09-22 11:22] LABS: Basophils # (auto) 0 10 ^3/uL (0-0.2); Basophils % (auto) 0.3 % (0.0-2.0); Eosinophils # (auto) 0.3 10 ^3/uL (0-0.8); Eosinophils % (auto) 7.1 % (0.0-7.0); Hematocrit 35.7 % (41.0-53.0); Hemoglobin 12.5 g/dL (13.5-17.5); Lymphocytes # (auto) 0.7 10 ^3/uL (0.4-5.4); Lymphocytes % (auto) 20.2 % (10.0-50.0); Mean Corpuscular Hemoglobin 29.1 pg (28.0-32.0); Mean Corpuscular Hgb Conc. 34.9 g/dL (32.0-36.0); Mean Corpuscular Volume 83.2 fL (80.0-100.0); Monocytes # (auto) 0.6 10 ^3/uL (0-1.3); Monocytes % (auto) 16.7 % (0.0-12.0); Neutrophils % (auto) 55.7 % (37.0-80.0); Nucleated Red Blood Cells % 0.4 %; Platelet Count (auto) 233 10^3/uL (140-450); Red Blood Cells 4.29 10^6/uL (4.5-5.90); Red Cell Distribution Width 12.2 % (11.8-14.3); White Blood Cell 3.6 10^3/uL (4.4-10.8)
[2024-09-22 11:38] LABS: Anion Gap 8 (5-15); Carbon Dioxide 23 mmol/L (20-31); Chloride 102 mmol/L (98-107); Potassium 3.7 mmol/L (3.5-5.1)
[2024-09-22 11:39] LABS: Calcium 8.8 mg/dL (8.7-10.4)
[2024-09-22 11:42] LABS: Sodium 133 mmol/L (136-145)
[2024-09-22 11:44] LABS: Blood Urea Nitrogen 8 mg/dL (9-23); Glucose 202 mg/dL (74-106)
[2024-09-22 13:00] VITALS: BP 124/91; PULSE 94; RESP 16; TEMP 98.9; O2SAT 96
[2024-09-22] MEDS ORDERED: INSLANTI SC (15:33)
[2024-09-22] MEDS ORDERED: CEPH250C PO (15:33)
[2024-09-22] MEDS ORDERED: METF-490 PO (15:33)
[2024-09-22 15:52] VITALS: BP 124/90; PULSE 94; RESP 16; TEMP 98; O2SAT 96
--- NOTE | 2024-09-22 15:53 | DVHDSRES ---
Discharge Summary Date of Admission Resident Creating Document: ERENDIRA SMITH RESIDENT Sep 15, 2024 at 21:27 Date of Discharge: Sep 22, 2024 Admitting Diagnosis Sepsis, likely due to diabetic foot Diabetic foot Cellulitis Diabetes mellitus with hyperglycemia Pseudo hyponatremia, likely due to hyperglycemia Wounds: Right wound s/p I&D of foot abscess Labs/Diagnostic Data: Laboratory Results Test 09/22/24 14:30 09/22/24 10:30 09/20/24 11:45 09/20/24 06:14 POC Glucose 175 mg/dl (70-106) White Blood Count 3.6 10^3/uL (4.4-10.8) Red Blood Count 4.29 10^6/uL (4.5-5.90) Hemoglobin 12.5 g/dL (13.5-17.5) Hematocrit 35.7 % (41.0-53.0) Mean Corpuscular Volume 83.2 fL (80.0-100.0) Mean Corpuscular Hemoglobin 29.1 pg (28.0-32.0) Mean Corpuscular Hemoglobin Concent 34.9 g/dL (32.0-36.0) Red Cell Distribution Width 12.2 % (11.8-14.3) Platelet Count 233 10^3/uL (140-450) Mean Platelet Volume 8.6 fL (6.9-10.8) Neutrophils (%) (Auto) 55.7 % (37.0-80.0) Lymphocytes (%) (Auto) 20.2 % (10.0-50.0) Monocytes (%) (Auto) 16.7 % (0.0-12.0) Eosinophils (%) (Auto) 7.1 % (0.0-7.0) Basophils (%) (Auto) 0.3 % (0.0-2.0) Neutrophils # (Auto) 2.0 10 ^3/uL (1.6-8.6) Lymphocytes # (Auto) 0.7 10 ^3/uL (0.4-5.4) Monocytes # (Auto) 0.6 10 ^3/uL (0-1.3) Eosinophils # (Auto) 0.3 10 ^3/uL (0-0.8) Basophils # (Auto) 0 10 ^3/uL (0-0.2) Nucleated Red Blood Cells 0.4 % Sodium Level 133 mmol/L (136-145) Potassium Level 3.7 mmol/L (3.5-5.1) Chloride Level 102 mmol/L (98-107) Carbon Dioxide Level 23 mmol/L (20-31) Anion Gap 8 (5-15) Blood Urea Nitrogen 8 mg/dL (9-23) Creatinine 0.80 mg/dL (0.700-1.30) Glomerular Filtration Rate Calc 122 mL/min (>90) BUN/Creatinine Ratio 10.0 (10.0-20.0) Serum Glucose 202 mg/dL (74-106) Calcium Level 8.8 mg/dL (8.7-10.4) Vancomycin Level Trough 16.2 ug/mL (5-10) Differential Total Cells Counted 100.0 (100) Neutrophils % (Manual) 47 (37.0-80.0) Band Neutrophils % (Manual) 3 Lymphocytes % (Manual) 25 (10.0-50.0) Monocytes % (Manual) 18 (0-12) Eosinophils % (Manual) 7 (0-7) Basophils % (Manual) 0 (0.0-2.0) Metamyelocytes % (manual) 0 Myelocytes % (Manual) 0 Promyelocytes % (Manual) 0 Blast Cells % (Manual) 0 Reactive Lymphocytes 0 Platelet Estimate Adequate Test 09/19/24 14:37 09/18/24 04:52 09/16/24 11:50 09/15/24 22:12 Prothrombin Time 12.0 sec (9.3-11.8) Prothrombin Time INR 1.15 (0.9-1.15) Activated Partial Thromboplast Time 29.0 SEC (24.5-34.5) Total Bilirubin 0.4 mg/dL (0.2-1.0) Aspartate Amino Transferase (AST) 14 U/L (13-40) Alanine Aminotransferase (ALT) 21 U/L (7-40) Alkaline Phosphatase 105 U/L (46-116) Total Protein 6.8 g/dL (5.7-8.2) Albumin 3.9 g/dL (3.2-4.8) Urine Color Yellow (Yellow) Urine Clarity Clear (Clear) Urine pH 5.5 (5.0-9.0) Urine Specific [place] 1.037 (1.001-1.035) Urine Protein Trace (Negative) Urine Ketones 2+ (Negative) Urine Blood Negative /uL (Negative) Urine Nitrite Negative (Negative) Urine Bilirubin Negative (Negative) Urine Urobilinogen Normal mg/dL (Negative) Urine Leukocyte Esterase Negative /uL (Negative) Urine RBC <1 /hpf (0 - 3) Urine Microscopic WBC 1 /HPF (0-3) Urine Squamous Epithelial Cells None seen /hpf (<5) Urine Bacteria None seen /hpf (None Seen) Urine Glucose 4+ mg/dL (Normal) Urine Opiates Screen Neg (NEGATIVE) Urine Fentanyl Screen Neg (NEGATIVE) Urine Barbiturates Screen Neg (NEGATIVE) Urine Phencyclidine Screen Neg (NEGATIVE) Urine Amphetamines Screen Neg (NEGATIVE) Urine Benzodiazepines Screen Neg (NEGATIVE) Urine Cocaine Screen Pos (NEGATIVE) Urine Cannabinoids Screen Neg (NEGATIVE) Erythrocyte Sedimentation Rate 62 mm/hr (0-20) Hemoglobin A1c 11.8 % A1C (<5.7) Lactic Acid Level 1.3 mmol/L (0.4-2.0) Magnesium Level 2.0 mg/dL (1.6-2.6) Direct Bilirubin 0.3 mg/dL (<0.3) C-Reactive Protein High Sensitivity 8.66 mg/dL (<1.0) Test 09/15/24 18:41 Beta-Hydroxybutyric Acid 0.412 mmol/L (< 0.4) Other Laboratory Tests 09/22/24 10:30 Brief Hx & Hospital Course: Patient is a 28-year-old male with no significant past medical history came to the ED with a chief complaint of right foot swelling and ulcer. Patient reports that about a week ago he got new footwear and he started wearing get and about 4 days ago he noticed a small blister at the back of his heel which eventually enlarged and burst followed by gradual swelling around the right ankle with the associated erythema and tenderness. Patient reported associated chills, fever but denied any shortness of breath. Patient in the ER was noted to have a blood glucose level of more than 400 mg/dL. Past medical history: None Past surgical history: None Family history: Patient's mother and father are both diabetic Social history: Patient smokes cigarettes but denies drinking alcohol or any other drug use Home medications: None Hospital course Patient with the c/c of right foot swelling and erythema was found to have elevated Hba1c at 11.8% and foot CT without contrast was done which showed mild soft tissue edema, no focal fluid collections or subcutaneous emphysema. Wound culture was sent and the patient was started on long acting insulin and sliding scale. To rule out osteomyelitis, right foot MRI was done which showed Subcutaneous edema around the ankle and dorsal aspect of the foot is nonspecific, focal fluid collection along the lateral aspect of the hindfoot, adjacent to the posterior calcaneus achilles tendon insertion and abutting the posterior skin surface, possible abscess, No evidence for osteomyelitis. Blood cultures were sent the patient grew MSSA which was treated appropriately with IV antibiotics Podiatry were consulted with . Patient underwent I&D twice and cultures were sent from the wound which showed growth of beta hemolytic group B streptococcus. Patient in the hospital was treated with IV vancomycin, cefepime and metronidazole. blood cultures were repeated which did not show any growth after 72 hours. Discharge plan Patient did not have insurance and according to the talent acquisition manager, he was over income and did not qualify for MEDICAL benefits. Ideally the patient needed IV antibiotics and the patient was explained about the situation and as he was unable to afford the IV antibiotics, patient was discharged on Oral antibiotics Cephalexin 500mg bid X 6 weeks Insulin lantus 20U qhs X 30 days metformin 500mg bid X 30 days Follow up: advised to follow up with the silverware buffer in 2 weeks and in the d/c clinic in one week. patient is advised to set up PCP as soon as possible Consults/Reason for consult Podiatary consult for right foot abscess Operations or Procedures Operative Report - 2 Report Details Date: 09/18/24 Preop Diagnosis: 1. Left foot abscess 2. Left foot necrotizing fasciitis 3. Left foot cellulitis 4. Left foot diabetic ulcer Postop Diagnosis: Same as preop Surgeon: Layne Vizcarra MD Anesthesiologist: See anesthesia Anesthesia: Mac Consent: The patient was informed of the risks and benefits of the procedure. These include but are not limited to complications of anesthesia, postoperative infection, incomplete relief of symptoms, recurrence of symptoms, damage to blood vessels, nerves and tendons, deep venous thrombosis, pulmonary embolism and possible need for repeat surgery in the future. Complications: None Estimated Blood Loss: Minimal Fluids: See anesthesia Findings: Consistent with the diagnosis Indications for Surgery: Worsening left foot wound Name of Procedure Performed 1. Left foot I&D to bone (80603) Procedure Details Procedure Details: PRE-PROCEDURE INFORMATION: In the pre-op holding area, the extremity to be operated on was clearly marked and the patient verified correct laterality of the marking. The patient was transferred to the OR table and placed in a supine position. A timeout was performed in which identification of the correct patient, procedure, location, and materials was done. The left foot and leg were prepped and draped in normal sterile fashion. DESCRIPTION OF PROCEDURE: Attention was directed to the left where area of fluctuance was noted. An incision was made over this area and was deepened through blunt dissection. The incision was deepened to the level of abscess and bone. Care was taken to the dissection to avoid any neurovascular and tendinous structures. The incision was deepened to the bone, and the abscess appeared to be purulent fluid consistent with pus. The cortices of the bone was then removed with rongeur an all necrotic tissue. After the abscess was drained, the area was irrigated with 3 L normal saline using cysto tubing. Deep cultures were then obtained from the wound. The area was then inspected and any areas of tracking, especially along the tendons were also drained. The wound was packed with Betadine-soaked gauze and we will need to be closed at a later date. POSTOPERATIVE INFORMATION: The patient tolerated the above noted procedure and anesthesia well and was transferred to the PACU with vital signs stable, and vascular status intact with capillary refill intact to all digits. Patient will return to the floor and continue IV antibiotics. Cultures were taken. Patient can weightbear as tolerated in a postoperative shoe. LAYNE VIZCARRA DPM Operative Report - 2 Report Details Date: 09/20/24 Preop Diagnosis: 1. Left foot abscess 2. Left foot necrotizing fasciitis 3. Left foot cellulitis 4. Left foot diabetic ulcer Postop Diagnosis: Same as preop Surgeon: Layne Vizcarra MD Anesthesiologist: See anesthesia Anesthesia: Mac Consent: The patient was informed of the risks and benefits of the procedure. These include but are not limited to complications of anesthesia, postoperative infection, incomplete relief of symptoms, recurrence of symptoms, damage to blood vessels, nerves and tendons, deep venous thrombosis, pulmonary embolism and possible need for repeat surgery in the future. Complications: None Estimated Blood Loss: Minimal Fluids: See anesthesia Findings: Consistent with the diagnosis Indications for Surgery: Worsening left foot wound Name of Procedure Performed 1. Left foot I&D to bone (41396) 2. Left foot delayed closure (78682) Procedure Details Procedure Details: PRE-PROCEDURE INFORMATION: In the pre-op holding area, the extremity to be operated on was clearly marked and the patient verified correct laterality of the marking. The patient was transferred to the OR table and placed in a supine position. A timeout was performed in which identification of the correct patient, procedure, location, and materials was done. The left foot and leg were prepped and draped in normal sterile fashion. DESCRIPTION OF PROCEDURE: Attention was directed to the left where area of fluctuance was noted. An incision was made over this area and was deepened through blunt dissection. The incision was deepened to the level of abscess and bone. Care was taken to the dissection to avoid any neurovascular and tendinous structures. The incision was deepened to the bone, and the abscess appeared to be purulent fluid consistent with pus. The cortices of the bone was then removed with rongeur an all necrotic tissue. After the abscess was drained, the area was irrigated with 3 L normal saline using cysto tubing. A delayed closure was then performed using 2-0 nylon after was deemed appropriate with no longer concern for infection. POSTOPERATIVE INFORMATION: The patient tolerated the above noted procedure and anesthesia well and was transferred to the PACU with vital signs stable, and vascular status intact with capillary refill intact to all digits. Patient will return to the floor and continue IV antibiotics. Cultures were taken. Patient can weightbear as tolerated in a postoperative shoe. LAYNE VIZCARRA [facility] Sep 20, 2024 10:44 Condition at Discharge: Good Final Diagnosis/Problems List Sepsis likely due to foot ulcer Cellulitis Diabetic foot ulcer osteomyelitis ruled out Uncontrolled type 2 diabetes mellitus Discharge Disposition: Home Discharge Instruct/Medications Diet: Regular Activity: No Restrictions, As Tolerated Activity comment: as tolerated activity in postoperative shoe Follow Up/Referral: Follow up in the d/c clinic in one week Follow up with the silverware buffer in 2 weeks Medications: as per EMR Discharge Statement: "Patient was advised to return to the ER or call 911 if any headaches, dizziness, shortness of breath, chest pain, abdominal pain, bleeding, fevers, or worsening of medical condition. Patient was counseled about treatment plan, medications, possible side effects, patientverbalized understanding. All questions were answered to the best of my ability. This discharge took greater then 30 minutes in planning, reviewing documentation, counseling the patient, and discussing with other team members." ASSESSMENT ASSESSMENT Assessment Sepsis likely due to foot ulcer Cellulitis Diabetic foot ulcer osteomyelitis ruled out Uncontrolled type 2 diabetes mellitus Date of Service: Sep 22, 2024 Billing Provider: VIJAYA BLACKWELL MD Common Visit Codes: 86280-ABQ/OBS DISCH DAY >30min ERENDIRA SMITH RESIDENT Sep 22, 2024 15:53 VIJAYA BLACKWELL MD Sep 24, 2024 15:39
== END 2024-09-22 18:06 | disposition home or self-care (01) | DRG 720 ==
LOC: ER 17:26 → OVERFLOW 21:27 → EAST 21:28
PROVIDERS: ADMIT Student in an Organized Health Care Education/Training Program; ATTEND Podiatrist
PROC: 0Y9N0ZZ Drainage of Left Foot, Open Approach (ICD-10-PCS; principal; 2024-09-18 14:15)
PROC: 0Y9N0ZZ Drainage of Left Foot, Open Approach (ICD-10-PCS; 2024-09-20)
DX: A41.9 Sepsis, unspecified organism (principal); M72.6 Necrotizing fasciitis; L03.115 Cellulitis of right lower limb; E11.621 Type 2 diabetes mellitus with foot ulcer; L02.612 Cutaneous abscess of left foot; E11.65 Type 2 diabetes mellitus with hyperglycemia; L84 Corns and callosities; L03.116 Cellulitis of left lower limb; F17.210 Nicotine dependence, cigarettes, uncomplicated; Z83.3 Family history of diabetes mellitus; Z80.0 Family history of malignant neoplasm of digestive organs
CPT/HCPCS: 36415; 73700; 73718; 80048; 80053; 80076; 80202; 80307; 81001; 82010; 82565; 82962; 83036; 83605; 83735; 85007; 85025; 85027; 85610; 85652; 85730; 86141; 87040; 87070; 87075; 87077; 87186; 87205; G0378; J1815; J2250; J2405; J2704; J3490